=== PATIENT | female | born 1985 | race Caucasian/White ===

== ENCOUNTER 2016-03-16 00:03 | Inpatient (IN) ==
--- NOTE | 2016-03-16 00:06 | Emergency Department Note ---
Disposition Clinical Impression: Lymphocele after surgical procedure, Abdominal pain, lower Disposition: Admitted As Inpatient Condition: Good Referrals: NO,PCP [Primary Care Provider] - Forms: Work/School Release, ED Satisfaction Letter Abdominal Pain HPI - General Chief Complaint: ED Abdominal Pain Stated Complaint: Abdominal Pain Time Seen by Provider: 03/16/16 00:04 Mode of arrival: ambulatory Limitations: no limitations Nursing Notes Reviewed: Yes Vital Signs Reviewed: Yes - History of Present Illness HPI Narrative: Patient here for continued abdominal pain or lower abdomen she states she pulled out the drain on accident 2 days ago. She continues to have some pain and erythema in the anterior abdominal wall she has not been able to follow-up as an outpatient. She is complaining of pain and nausea and also states she had a fever today Pt Subjective Complaint: abdominal pain Onset (ago): week(s) (1) Consistency: constant, Worsening Location: LLQ, RLQ Pain Severity: moderate Quality: aching Radiation: none Improves with: nothing Worsens with: nothing Associated symptoms: Reports: fever. Denies: vomiting, dysuria, hematemesis Treatments prior to arrival: none - Related Data Home Medications Medication Instructions Recorded Confirmed Doxepin [Sinequan] 25 mg PO HS 11/21/15 03/10/16 FLUoxetine HCl [Prozac] 60 mg PO DAILY 11/21/15 03/10/16 Melatonin 5 mg PO HS PRN 01/26/16 03/10/16 Metoprolol XL (24 HR) Succ [Toprol 75 mg PO DAILY 01/26/16 03/10/16 Xl] Medroxyprogesterone Acetate 150 mg IM Q3M 02/03/16 03/10/16 [Depo-Provera] Gabapentin [Neurontin] 600 mg PO TID 02/23/16 03/10/16 Metoclopramide [Reglan] 10 mg PO Q6HR PRN 03/10/16 03/10/16 OxyCODONE/APAP 5/325 [Percocet 1 each PO Q6HR PRN 03/10/16 03/10/16 5/325 MG] Previous Rx's Medication Instructions Recorded Cephalexin [Keflex] 500 mg PO QID #40 capsule 01/30/16 Oxycodone HCl/Acetaminophen 1 - 2 each PO Q4-6H #20 tablet 03/10/16 [Percocet 5-325 mg Tablet] Allergies Allergy/AdvReac Type Severity Reaction Status Date / Time ketorolac [From Toradol] Allergy Rash Verified 03/16/16 00:21 All systems ED: reviewed and negative except as stated. Constitutional: Reports: fever Cardiovascular: Denies: chest pain, palpitations, dyspnea on exertion Abdominal Pain PMH - Past Medical History Medical history: Reports: hypertension Female Surgical History: Reports: Adenoidectomy, , cholecystectomy, herniorrhaphy, Tonsillectomy, other [place] history: Reports: endometriosis Psychiatric history: Reports: bipolar, depression, PTSD - Social History Smoking status: Current every day smoker Alcohol use: Reports: none Drug use: Reports: none Course Vital Signs Temperature 100.3 F H 03/16/16 00:04 Pulse Rate 82 03/16/16 00:04 Respiratory Rate 18 03/16/16 00:04 Blood Pressure 142/76 03/16/16 00:04 O2 Sat by Pulse Oximetry 96 03/16/16 00:04 Temperature 100.3 F H 03/16/16 00:04 Pulse Rate 85 03/16/16 01:51 Respiratory Rate 18 03/16/16 01:51 Blood Pressure 107/55 03/16/16 01:51 O2 Sat by Pulse Oximetry 95 03/16/16 01:51 Oxygen Delivery Oxygen Delivery Room Air Abdominal Pain - MDM Narrative Medical decision making narrative: I spoke with Dr. Greenwood he would like to have her medical hospitalist service intention is to open up the wound and place a wound VAC - Differential Diagnosis Differential Diagnosis: Likely: abdominal pain non-specific, abdominal pain mimics ectopic , constipation, colonic obstruction, diverticulitis, diverticulosis, endometriosis, gastroenteritis, ischemic bowel, pancreatitis - Medical Records Medical records reviewed: Yes I reviewed the patient's medical records. - Lab Data Lab results reviewed: Yes I reviewed the patient's lab results. Result diagrams: 03/16/16 00:33 03/16/16 00:33 Lab Results 03/16/16 03/16/16 03/16/16 Range/Units 00:33 00:33 00:33 WBC 6.6 (4.3-11.1) K/mcL RBC 4.11 (3.82-4.97) M/mcL Hgb 12.0 (11.5-15.4) g/dL Hct 37.6 (35.3-44.9) % MCV 91.5 (83.0-100.0) fL MCH 29.2 (28.0-33.3) pg MCHC 31.9 (31.6-35.5) g/dL RDW 14.5 (11.5-14.5) % Plt Count 347 (140-400) K/mcL MPV 8.7 L (9.4-12.4) fL Immature Gran % 0.3 (0-4) % Seg Neutrophils % 48.1 % Lymphocytes % 40.7 % Monocytes % 8.3 % Eosinophils % 2.0 % Basophils % 0.6 % Neutrophils # 3.2 (1.6-8.9) K/mcL Lymphocytes # 2.7 (0.6-4.6) K/mcL Monocytes # 0.6 (0.0-1.3) K/mcL Eosinophils # 0.1 (0.0-0.6) K/mcL Basophils # 0.0 (0.0-0.2) K/mcL Immature Plt Fraction 2.0 (1.1-6.1) % Sodium 141 (136-145) mEq/L Potassium 3.6 (3.5-4.5) mEq/L Chloride 109 (98-109) mEq/L Carbon Dioxide 21 (19-29) mEq/L BUN 8 (7-20) mg/dL Creatinine 0.63 (0.57-1.11) mg/dL Est GFR ( Amer) > 60 (> 60) Est GFR (Non-Af Amer) > 60 (> 60) BUN/Creatinine Ratio 13 (6-26) Glucose 86 (70-99) mg/dL Calculated Osmolality 290 (280-300) Lactic Acid 1.2 (0.5-2.2) mmol/L Calcium 8.9 (8.6-10.8) mg/dL Total Bilirubin 0.3 (0.2-1.2) mg/dL Direct Bilirubin 0.1 (0.0-0.5) mg/dL Indirect Bilirubin 0.2 (0.0-1.2) mg/dL AST 18 (5-34) Units/L ALT 17 (0-55) Units/L Alkaline Phosphatase 73 (38-126) Units/L Serum Total Protein 6.4 (6.0-8.3) g/dL Albumin 3.0 L (3.5-5.0) g/dL Globulin 3.4 (2.4-3.5) g/dL Albumin/Globulin Ratio 0.9 L (1.1-2.2) Amylase 28 (25-125) Units/L Lipase 17 (8-78) Units/L Urine Color (Yellow) Urine Clarity (Clear) Urine pH (5.0-8.0) pH Units Ur Specific [place] (1.010-1.025) Urine Protein (Neg-Trace) mg/dL Urine Glucose (UA) (Normal) mg/dL Urine Ketones (Negative) mg/dL Urine Blood (Negative) Urine Nitrite (Negative) Urine Bilirubin (Negative) Urine Urobilinogen (Normal) mg/dL Ur Leukocyte Esterase (Negative) Urine Microscopic RBC (0-3) per hpf Urine Microscopic WBC (0-3) per hpf Ur Squamous Epith Cells (None-Few) per lpf Urine Bacteria (None-Few) per hpf Hyaline Casts (None-Few) per lpf Ur Culture Indicated? (NO) Urine Opiates Screen (Flbvth=144) ng/mL Ur Barbiturates Screen (Gfmjit=870) ng/mL Ur Phencyclidine Scrn (Cutoff=25) ng/mL Ur Amphetamines Screen (Tagink=3494) ng/mL U Benzodiazepines Scrn (Iebjhs=320) ng/mL Urine Cocaine Screen (Cutoff= 300) ng/mL U Marijuana (THC) Screen (Cutoff = 50) ng/mL 03/16/16 03/16/16 Range/Units 00:46 00:49 WBC (4.3-11.1) K/mcL RBC (3.82-4.97) M/mcL Hgb (11.5-15.4) g/dL Hct (35.3-44.9) % MCV (83.0-100.0) fL MCH (28.0-33.3) pg MCHC (31.6-35.5) g/dL RDW (11.5-14.5) % Plt Count (140-400) K/mcL MPV (9.4-12.4) fL Immature Gran % (0-4) % Seg Neutrophils % % Lymphocytes % % Monocytes % % Eosinophils % % Basophils % % Neutrophils # (1.6-8.9) K/mcL Lymphocytes # (0.6-4.6) K/mcL Monocytes # (0.0-1.3) K/mcL Eosinophils # (0.0-0.6) K/mcL Basophils # (0.0-0.2) K/mcL Immature Plt Fraction (1.1-6.1) % Sodium (136-145) mEq/L Potassium (3.5-4.5) mEq/L Chloride (98-109) mEq/L Carbon Dioxide (19-29) mEq/L BUN (7-20) mg/dL Creatinine (0.57-1.11) mg/dL Est GFR ( Amer) (> 60) Est GFR (Non-Af Amer) (> 60) BUN/Creatinine Ratio (6-26) Glucose (70-99) mg/dL Calculated Osmolality (280-300) Lactic Acid (0.5-2.2) mmol/L Calcium (8.6-10.8) mg/dL Total Bilirubin (0.2-1.2) mg/dL Direct Bilirubin (0.0-0.5) mg/dL Indirect Bilirubin (0.0-1.2) mg/dL AST (5-34) Units/L ALT (0-55) Units/L Alkaline Phosphatase (38-126) Units/L Serum Total Protein (6.0-8.3) g/dL Albumin (3.5-5.0) g/dL Globulin (2.4-3.5) g/dL Albumin/Globulin Ratio (1.1-2.2) Amylase (25-125) Units/L Lipase (8-78) Units/L Urine Color Yellow (Yellow) Urine Clarity Cloudy A (Clear) Urine pH 7.0 (5.0-8.0) pH Units Ur Specific [place] 1.021 (1.010-1.025) Urine Protein Negative (Neg-Trace) mg/dL Urine Glucose (UA) Normal (Normal) mg/dL Urine Ketones Negative (Negative) mg/dL Urine Blood Negative (Negative) Urine Nitrite Negative (Negative) Urine Bilirubin Negative (Negative) Urine Urobilinogen Normal (Normal) mg/dL Ur Leukocyte Esterase Small H (Negative) Urine Microscopic RBC 0-3 (0-3) per hpf Urine Microscopic WBC 0-3 (0-3) per hpf Ur Squamous Epith Cells Many H (None-Few) per lpf Urine Bacteria Few (None-Few) per hpf Hyaline Casts None Seen (None-Few) per lpf Ur Culture Indicated? YES A (NO) Urine Opiates Screen Negative (Wceevg=775) ng/mL Ur Barbiturates Screen Negative (Jfxopm=827) ng/mL Ur Phencyclidine Scrn Negative (Cutoff=25) ng/mL Ur Amphetamines Screen Negative (Pqiucg=9948) ng/mL U Benzodiazepines Scrn Negative (Rchbug=661) ng/mL Urine Cocaine Screen Positive H (Cutoff= 300) ng/mL U Marijuana (THC) Screen Positive H (Cutoff = 50) ng/mL - Radiology Data Radiology results reviewed: Yes I reviewed the patient's radiology results.
[2016-03-16 00:54] LABS: Bilirubin,Urine Negative (Negative); Blood,Urine Negative (Negative); Clarity,Urine Cloudy (Clear); Color,Urine Yellow (Yellow); Glucose,Urine (UA) Normal (Normal); Ketones,Urine Negative (Negative); Leukocyte Esterase,Urine Small (Negative); Nitrite,Urine Negative (Negative); Protein,Urine Negative (Neg-Trace); Specific Gravity,Urine 1.021 (1.010-1.025); Urobilinogen,Urine Normal (Normal)
[2016-03-16 00:57] LABS: Bacteria,Urine Few per hpf (None-Few); Hyaline Casts,Urine None Seen per lpf (None-Few); RBC,Urine 0-3 per hpf (0-3); Squamous Epithelial Cell,Urine Many per lpf (None-Few); WBC,Urine 0-3 per hpf (0-3)
[2016-03-16 01:01] LABS: Amphetamine Screen,Urine Negative ng/mL (Cutoff=1000); Barbiturate Screen,Urine Negative ng/mL (Cutoff=200); Benzodiazepines Screen,Urine Negative ng/mL (Cutoff=200); Cannabinoid Screen,Urine Positive ng/mL (Cutoff = 50); Cocaine Screen,Urine Positive ng/mL (Cutoff= 300); Opiate Screen,Urine Negative ng/mL (Cutoff=300); Phencyclidine Screen,Urine Negative ng/mL (Cutoff=25)
[2016-03-16 01:08] LABS: Basophils % 0.6 %; Eosinophils # 0.1 K/mcL (0.0-0.6); Hematocrit 37.6 % (35.3-44.9); Immature Granulocytes % 0.3 % (0-4); Lymphocytes # 2.7 K/mcL (0.6-4.6); Lymphocytes % 40.7 %; Mean Corpuscular HGB Conc 31.9 g/dL (31.6-35.5); Mean Corpuscular Hemoglobin 29.2 pg (28.0-33.3); Mean Corpuscular Volume 91.5 fL (83.0-100.0); Mean Platelet Volume 8.7 fL (9.4-12.4); Monocytes # 0.6 K/mcL (0.0-1.3); Monocytes % 8.3 %; Neutrophils # 3.2 K/mcL (1.6-8.9); Platelet Count 347 K/mcL (140-400); Red Blood Count 4.11 M/mcL (3.82-4.97); Red Cell Distribution Width 14.5 % (11.5-14.5); Segmented Neutrophils % 48.1 %
[2016-03-16 01:24] LABS: Alanine Aminotransferase 17 Units/L (0-55); Albumin/Globulin Ratio 0.9 (1.1-2.2); Alkaline Phosphatase 73 Units/L (38-126); Amylase 28 Units/L (25-125); Aspartate Amino Transferase 18 Units/L (5-34); BUN/Creatinine Ratio 13 (6-26); Bilirubin,Direct 0.1 mg/dL (0.0-0.5); Bilirubin,Indirect 0.2 mg/dL (0.0-1.2); Bilirubin,Total 0.3 mg/dL (0.2-1.2); Blood Urea Nitrogen 8 mg/dL (7-20); Calcium 8.9 mg/dL (8.6-10.8); Carbon Dioxide 21 mEq/L (19-29); Chloride 109 mEq/L (98-109); Globulin 3.4 g/dL (2.4-3.5); Glucose 86 mg/dL (70-99); Lipase 17 Units/L (8-78); Osmolality,Calculated 290 (280-300); Potassium 3.6 mEq/L (3.5-4.5); Sodium 141 mEq/L (136-145); Total Protein 6.4 g/dL (6.0-8.3); eGFR For African Americans > 60 (> 60); eGFR For Non-African Americans > 60 (> 60)
[2016-03-16] MEDS ORDERED: *HR* Promethazine 25 MG/ML VIAL IVP ONE ×2 (01:32→11:45)
[2016-03-16] MEDS ORDERED: Acetaminophen 325 MG TABLET PO PRN (04:50)
[2016-03-16] MEDS ORDERED: Naloxone 0.4 MG/ML INJ IVP PRN (04:50)
--- NOTE | 2016-03-16 05:01 | Internal Med History&Physical ---
Date of Encounter: 03/16/16 Time of Encounter: 04:35 Internal Medicine - H&P: HPI Chief complaint: Abdominal pain, drainage from non-healing wound, fever. Admitted From: Emergency Dept Plans for Post Hospital Care: Home History of present illness: Ms. Mosher is a 30 year old female with recurrent panniculitis, pannicular drainage, s/p panniculectomy on January 26 2016. She reports abdominal pain, pannicular drainage and low grade fevers. She had a drain placed by IR last week and was sent home on Keflex. The drainage tube fell out yesterday while she was sleeping. Urine drug screen is positive for cocaine and marijuana. She agrees to socially snorting coacaine. . She is FULL CODE as per discussion, she nominates her mother, Karen Flores as her NOK/POA. Medical history: Reports: hypertension Female Surgical History: Reports: Adenoidectomy, , cholecystectomy, herniorrhaphy, Tonsillectomy, panniculectomy COMMUNICATIONS SYSTEMS ENGINEER history: Reports: endometriosis Psychiatric history: Reports: bipolar, depression, PTSD Smoking status: Current every day smoker Alcohol use: Reports: none Drug use: Reports: Cocaine (last use 2 days Family history: mother: Grave disease, father: DM, CAD s/p CABG, CVA, sister: HTN. ROS: See HPI, a 10-point ROS was performed, positives and relevant negatives are detailed, system-symptoms not mentioned is assumed negative unless other triplett stated. Vital Signs Temperature 100.3 F H 03/16/16 00:04 Pulse Rate 82 03/16/16 00:04 Respiratory Rate 18 03/16/16 00:04 Blood Pressure 142/76 03/16/16 00:04 O2 Sat by Pulse Oximetry 96 03/16/16 00:04 Temperature 100.3 F H 03/16/16 00:04 Pulse Rate 85 03/16/16 01:51 Respiratory Rate 18 03/16/16 01:51 Blood Pressure 107/55 03/16/16 01:51 O2 Sat by Pulse Oximetry 95 03/16/16 01:51 O/E: Morbidly obese, not in distress HEENT: Not pale, anicteric, afebrile, acyanotic, no JVD Chest: CTAB Heart/CVS: RRR, HS1/2, no murmur Abdomen: hip incision, largely healed excepts for pannicula in the left half, purulent discharge, suggesting underlying sinus and pocket of fluid. soft, tender, no masses. Site of disloged SIM drain has closed. excess abdominal wall skin WATER TAXI CAPTAIN: AAO x 3, no gross focal neurological decifits Skin: Pannicula, see above Extremities: no normal pedal pulses, no calf tenderness. Lab Results 03/16/16 03/16/16 03/16/16 Range/Units 00:33 00:33 00:33 WBC 6.6 (4.3-11.1) K/mcL RBC 4.11 (3.82-4.97) M/mcL Hgb 12.0 (11.5-15.4) g/dL Hct 37.6 (35.3-44.9) % MCV 91.5 (83.0-100.0) fL MCH 29.2 (28.0-33.3) pg MCHC 31.9 (31.6-35.5) g/dL RDW 14.5 (11.5-14.5) % Plt Count 347 (140-400) K/mcL MPV 8.7 L (9.4-12.4) fL Immature Gran % 0.3 (0-4) % Seg Neutrophils % 48.1 % Lymphocytes % 40.7 % Monocytes % 8.3 % Eosinophils % 2.0 % Basophils % 0.6 % Neutrophils # 3.2 (1.6-8.9) K/mcL Lymphocytes # 2.7 (0.6-4.6) K/mcL Monocytes # 0.6 (0.0-1.3) K/mcL Eosinophils # 0.1 (0.0-0.6) K/mcL Basophils # 0.0 (0.0-0.2) K/mcL Immature Plt Fraction 2.0 (1.1-6.1) % Sodium 141 (136-145) mEq/L Potassium 3.6 (3.5-4.5) mEq/L Chloride 109 (98-109) mEq/L Carbon Dioxide 21 (19-29) mEq/L BUN 8 (7-20) mg/dL Creatinine 0.63 (0.57-1.11) mg/dL Est GFR ( Amer) > 60 (> 60) Est GFR (Non-Af Amer) > 60 (> 60) BUN/Creatinine Ratio 13 (6-26) Glucose 86 (70-99) mg/dL Calculated Osmolality 290 (280-300) Lactic Acid 1.2 (0.5-2.2) mmol/L Calcium 8.9 (8.6-10.8) mg/dL Total Bilirubin 0.3 (0.2-1.2) mg/dL Direct Bilirubin 0.1 (0.0-0.5) mg/dL Indirect Bilirubin 0.2 (0.0-1.2) mg/dL AST 18 (5-34) Units/L ALT 17 (0-55) Units/L Alkaline Phosphatase 73 (38-126) Units/L Serum Total Protein 6.4 (6.0-8.3) g/dL Albumin 3.0 L (3.5-5.0) g/dL Globulin 3.4 (2.4-3.5) g/dL Albumin/Globulin Ratio 0.9 L (1.1-2.2) Amylase 28 (25-125) Units/L Lipase 17 (8-78) Units/L Urine Color (Yellow) Urine Clarity (Clear) Urine pH (5.0-8.0) pH Units Ur Specific [place] (1.010-1.025) Urine Protein (Neg-Trace) mg/dL Urine Glucose (UA) (Normal) mg/dL Urine Ketones (Negative) mg/dL Urine Blood (Negative) Urine Nitrite (Negative) Urine Bilirubin (Negative) Urine Urobilinogen (Normal) mg/dL Ur Leukocyte Esterase (Negative) Urine Microscopic RBC (0-3) per hpf Urine Microscopic WBC (0-3) per hpf Ur Squamous Epith Cells (None-Few) per lpf Urine Bacteria (None-Few) per hpf Hyaline Casts (None-Few) per lpf Ur Culture Indicated? (NO) Urine Opiates Screen (Nggkeq=462) ng/mL Ur Barbiturates Screen (Jrntsw=255) ng/mL Ur Phencyclidine Scrn (Cutoff=25) ng/mL Ur Amphetamines Screen (Jowevt=5854) ng/mL U Benzodiazepines Scrn (Zeawdh=431) ng/mL Urine Cocaine Screen (Cutoff= 300) ng/mL U Marijuana (THC) Screen (Cutoff = 50) ng/mL 01/27/17 01/27/17 Range/Units 00:46 00:49 WBC (4.3-11.1) K/mcL RBC (3.82-4.97) M/mcL Hgb (11.5-15.4) g/dL Hct (35.3-44.9) % MCV (83.0-100.0) fL MCH (28.0-33.3) pg MCHC (31.6-35.5) g/dL RDW (11.5-14.5) % Plt Count (140-400) K/mcL MPV (9.4-12.4) fL Immature Gran % (0-4) % Seg Neutrophils % % Lymphocytes % % Monocytes % % Eosinophils % % Basophils % % Neutrophils # (1.6-8.9) K/mcL Lymphocytes # (0.6-4.6) K/mcL Monocytes # (0.0-1.3) K/mcL Eosinophils # (0.0-0.6) K/mcL Basophils # (0.0-0.2) K/mcL Immature Plt Fraction (1.1-6.1) % Sodium (136-145) mEq/L Potassium (3.5-4.5) mEq/L Chloride (98-109) mEq/L Carbon Dioxide (19-29) mEq/L BUN (7-20) mg/dL Creatinine (0.57-1.11) mg/dL Est GFR ( Amer) (> 60) Est GFR (Non-Af Amer) (> 60) BUN/Creatinine Ratio (6-26) Glucose (70-99) mg/dL Calculated Osmolality (280-300) Lactic Acid (0.5-2.2) mmol/L Calcium (8.6-10.8) mg/dL Total Bilirubin (0.2-1.2) mg/dL Direct Bilirubin (0.0-0.5) mg/dL Indirect Bilirubin (0.0-1.2) mg/dL AST (5-34) Units/L ALT (0-55) Units/L Alkaline Phosphatase (38-126) Units/L Serum Total Protein (6.0-8.3) g/dL Albumin (3.5-5.0) g/dL Globulin (2.4-3.5) g/dL Albumin/Globulin Ratio (1.1-2.2) Amylase (25-125) Units/L Lipase (8-78) Units/L Urine Color Yellow (Yellow) Urine Clarity Cloudy A (Clear) Urine pH 7.0 (5.0-8.0) pH Units Ur Specific [place] 1.021 (1.010-1.025) Urine Protein Negative (Neg-Trace) mg/dL Urine Glucose (UA) Normal (Normal) mg/dL Urine Ketones Negative (Negative) mg/dL Urine Blood Negative (Negative) Urine Nitrite Negative (Negative) Urine Bilirubin Negative (Negative) Urine Urobilinogen Normal (Normal) mg/dL Ur Leukocyte Esterase Small H (Negative) Urine Microscopic RBC 0-3 (0-3) per hpf Urine Microscopic WBC 0-3 (0-3) per hpf Ur Squamous Epith Cells Many H (None-Few) per lpf Urine Bacteria Few (None-Few) per hpf Hyaline Casts None Seen (None-Few) per lpf Ur Culture Indicated? YES A (NO) Urine Opiates Screen Negative (Inyaol=113) ng/mL Ur Barbiturates Screen Negative (Vwsvfq=411) ng/mL Ur Phencyclidine Scrn Negative (Cutoff=25) ng/mL Ur Amphetamines Screen Negative (Ystxkl=1646) ng/mL U Benzodiazepines Scrn Negative (Ljexsn=148) ng/mL Urine Cocaine Screen Positive H (Cutoff= 300) ng/mL U Marijuana (THC) Screen Positive H (Cutoff = 50) ng/mL imp Panniculitis with fever, with drainage ? 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 urine and blood cultures have been sent. DR GREENWOOD WILL OBTAIN RE[RESENTATION MICROBIOLOGY SAMPLE DURING SURGERY Continue medications of chronic morbidities DVT prophylaxis with TEDs, may convert to heparin subcut q8-12h on POD2 I discussed my findings and assessment with the patient, she verbalized understanding and is agreeable to admission. Await surgical recommendation. Past Med Surg Social Fam HX - Past Medical History Medical history: hypertension Psychiatric history: bipolar, depression, PTSD - Past Surgical History Surgical History: , herniorrhaphy - Social History Smoking Status: Current every day smoker Smokeless Tobacco Status: No Alcohol use: none Drug use: cocaine - Family History Father Adopted: No Family Member Ethnicity: Non- Living Status: Still Living Hx Family Cardiac Disorders: Yes Hx Family Respiratory Disorders: No Hx Family Cancer: Yes Hx Family GI Disorders: No Hx Family Endocrine Disorder: Yes Hx Family Neuromuscular Disorders: No Hx Family Neurologic Disorders: No Hx Family HEENT Disorders: No Hx Family Autoimmune Disorders: No Internal Medicine - H&P: Meds Doxepin [Sinequan] 25 mg PO HS 11/21/15 [History] FLUoxetine HCl [Prozac] 60 mg PO DAILY 11/21/15 [History] Melatonin 5 mg PO HS PRN 01/26/16 [History] Metoprolol XL (24 HR) Succ [Toprol Xl] 75 mg PO DAILY 01/26/16 [History] Gabapentin [Neurontin] 600 mg PO TID 02/23/16 [History] OxyCODONE/APAP 5/325 [Percocet 5/325 MG] 1 - 2 tab PO Q6HR PRN 03/10/16 [History ] Allergies ketorolac [From Toradol] Allergy (Verified 03/16/16 09:25) Rash All Systems PM: A 10-system review of systems was performed and is negative for pertinent findings except as documented above in the HPI. - Constitutional Vitals: Temp Pulse Resp BP Pulse Ox 99.2 F 73 16 111/70 95 03/16/16 04:48 03/16/16 04:48 03/16/16 04:48 03/16/16 04:48 03/16/16 04:48 Internal Med - H&P Results - Labs CBC & Chem 7: 03/17/16 06:19 03/17/16 06:36
[2016-03-16] MEDS: *HR* OxyCODONE/APAP 5/325 TABLET PO PRN ×3 (05:12→19:45)
--- NOTE | 2016-03-16 06:45 | General Surgery Consult Note ---
Date of Encounter: 03/16/16 Time of Encounter: 06:30 Assessment and Plan (1) Lymphocele after surgical procedure Current Visit: Yes Status: Acute The patient has a postoperative lymphocele. She has been noncompliant with recommended therapy. She has been noncompliant with recommended clinic follow- up. She now presents for treatment of the lymphocele with negative pressure wound dressing and wound debridement. History of Present Illness Consult date: 03/16/16 History of present illness: The patient is originally a wound clinic patient. She had a wound on her midline for 2 years that failed to heal. Because of this she underwent panniculectomy. During the postoperative period she developed a lymphocele. A negative pressure wound dressing was recommended. The patient failed to comply with this recommendation. She underwent placement of CAT scan drain which failed to resolve the lymphocele. The CAT scan drain came out and she now presents with recurrent lymphocele. There are several ongoing problems that are interfering with patient care. First, she only contacts the physician's offices between midnight and 2 AM on the emergency telephone contact number. She fails to keep her clinic appointments in both wound care and the surgical office area she has been in and out of rehabilitation for narcotic use and currently is drug screen positive for multiple agents. As always I am enthusiastic about providing her care but not in this inconsistent and suboptimal environment. I had a long talk with the patient this morning. She is willing to keep her clinic appointments and resolve the issue with negative pressure wound dressing. We will keep her nothing by mouth and I will debride the wound today and placed negative pressure wound dressing. Past Med Surg Social Fam HX - Past Medical History Medical history: hypertension Psychiatric history: bipolar, depression, PTSD - Past Surgical History Surgical History: , herniorrhaphy - Social History Smoking Status: Current every day smoker Smokeless Tobacco Status: No Alcohol use: none Drug use: cocaine - Family History Father Adopted: No Family Member Ethnicity: Non- Living Status: Still Living Hx Family Cardiac Disorders: Yes Hx Family Respiratory Disorders: No Hx Family Cancer: Yes Hx Family GI Disorders: No Hx Family Endocrine Disorder: Yes Hx Family Neuromuscular Disorders: No Hx Family Neurologic Disorders: No Hx Family HEENT Disorders: No Hx Family Autoimmune Disorders: No Medications and Allergies Doxepin [Sinequan] 25 mg PO HS 11/21/15 [History] FLUoxetine HCl [Prozac] 60 mg PO DAILY 11/21/15 [History] Melatonin 5 mg PO HS PRN 01/26/16 [History] Metoprolol XL (24 HR) Succ [Toprol Xl] 75 mg PO DAILY 01/26/16 [History] Cephalexin [Keflex] 500 mg PO QID #40 capsule 01/30/16 [Rx] Medroxyprogesterone Acetate [Depo-Provera] 150 mg IM Q3M 02/03/16 [History] Gabapentin [Neurontin] 600 mg PO TID 02/23/16 [History] Metoclopramide [Reglan] 10 mg PO Q6HR PRN 03/10/16 [History] OxyCODONE/APAP 5/325 [Percocet 5/325 MG] 1 each PO Q6HR PRN 03/10/16 [History] Oxycodone HCl/Acetaminophen [Percocet 5-325 mg Tablet] 1 - 2 each PO Q4-6H #20 tablet 03/10/16 [Rx] Allergies ketorolac [From Toradol] Allergy (Verified 03/16/16 00:21) Rash Review of Systems All systems PM: reviewed and no additional remarkable complaints except as stated All systems PM: A 10-system review of systems was performed and is negative for pertinent findings except as documented above in the HPI. General Surgery Exam Initial Vital Signs Temp Pulse Resp BP Pulse Ox 100.3 F H 82 18 142/76 96 03/16/16 00:04 03/16/16 00:04 03/16/16 00:04 03/16/16 00:04 03/16/16 00:04 - General physical appearance well developed, well nourished, no distress - Neck no masses, no bruits, trachea midline, no lymphadectomy, no venous distension - Respiratory normal expansion, normal respiratory effort, clear to percussion, clear to auscultation - Cardiovascular Cardiovascular exam: Present: RRR, 15, 16 - Abdomen Abdomen general surgery: Present: bowel sounds present, soft, non tender - Incision Incision: Present: approximated (There is no drainage however I can feel a lymphocele under the wound) - Neurologic Present: CN 2-12 grossly intact, normal coordination, normal sensation - Psychiatric Psychiatric general surgery: Present: appropriate, oriented to person, oriented to place, oriented to time, speech is normal, memory intact Exam Initial Vital Signs Temp Pulse Resp BP Pulse Ox 100.3 F H 82 18 142/76 96 03/16/16 00:04 03/16/16 00:04 03/16/16 00:04 03/16/16 00:04 03/16/16 00:04 Results - Labs 03/16/16 00:33 03/16/16 00:33 Abnormal lab results MPV 8.7 fL (9.4-12.4) L 03/16/16 00:33 Albumin 3.0 g/dL (3.5-5.0) L 03/16/16 00:33 Albumin/Globulin Ratio 0.9 (1.1-2.2) L 03/16/16 00:33 Urine Clarity Cloudy (Clear) A 03/16/16 00:49 Ur Leukocyte Esterase Small (Negative) H 03/16/16 00:49 Ur Squamous Epith Cells Many per lpf (None-Few) H 03/16/16 00:49 Ur Culture Indicated? YES (NO) A 03/16/16 00:49 Urine Cocaine Screen Positive ng/mL (Cutoff= 300) H 03/16/16 00:46 U Marijuana (THC) Screen Positive ng/mL (Cutoff = 50) H 03/16/16 00:46 All other labs normal. - Imaging CT scan - abdomen: image reviewed (I personally reviewed the CAT scan and the abdomen I disagree with the finding. I believe that this is lymphocele and not abscess. She will be treated with negative pressure wound dressing later today after the wound was debrided.) Consult Discharge Plan - Plan Referrals: NO,PCP [Primary Care Provider] -
[2016-03-16] MEDS: Ondansetron 4 MG/2 ML VIAL IVP PRN (10:29)
[2016-03-16] MEDS: *HR* Morphine 2 MG/ML SYRINGE IVP PRN ×3 (10:30→23:30)
--- NOTE | 2016-03-16 10:35 | Internal Med Progress Note ---
Date of Encounter: 03/16/16 Time of Encounter: 10:33 - Assessment and plan (1) Abdominal pain, lower Current Visit: Yes Status: Acute Assessment and plan: Patient presented with abdominal pain, she has been evaluated by surgical team, patient will go to the operating room today, she would undergo a debridement and we have a negative pressure wound dressing placed. Possible lymphocele. We will follow-up after surgical procedure. In the meantime we will continue with pain control. Patient has tested positive for both cocaine and marijuana. She is also an active smoker, she was strongly advised in regards to smoking cessation and avoidance of the use of recreational drugs. (2) Lymphocele after surgical procedure Current Visit: Yes Status: Acute (3) DVT prophylaxis Current Visit: No Status: Acute (4) Tobacco abuse Current Visit: No Status: Chronic - Time Spent With Patient 25 - 35 minutes - Subjective Interval history: This is my first encounter with the patient. The patient is complaining of abdominal pain, denies fever, denies shortness of breath. The patient is a chronic active smoker, she declined nicotine replacement therapy. - Constitutional Vitals: Temp Pulse Resp BP Pulse Ox 98.8 F 61 18 106/57 97 03/16/16 10:13 03/16/16 10:13 03/16/16 10:13 03/16/16 10:13 03/16/16 10:13 General appearance: Present: cooperative, A&O X 3, morbidly obese Exam: Multiple tattoos. - Head Head exam: Present: atraumatic, normocephalic - Eye Eye exam: Present: PERRL, conjuntiva pink, sclera anicteric Pupils: Present: PERRL - Neck Neck exam general surgery: Present: supple, trachea midline. Absent: lymphadenopathy - Respiratory Respiratory exam: Present: CTAB. Absent: accessory muscle use, rales, rhonchi, wheezes - Cardiovascular Cardiovascular exam: Present: RRR, +S1, +S2. Absent: diastolic murmur, gallop, rubs, systolic murmur - GI/Abdominal GI/Abdominal exam: Present: normal bowel sounds, soft, no peritoneal signs. Absent: distended, tenderness - Extremities Exam Extremities exam: Present: warm, radial pulses palpable and symetrical. Absent : calf tenderness, cyanotic, pedal edema - Neurological Exam Neurological exam: Present: CN II-XII intact, oriented X3, no focal deficits. Absent: pronater drift, facial droop, speech deficit - Skin Skin exam: Present: dry, intact Internal Medicine: Result - Labs CBC & Chem 7: 03/16/16 00:33 03/16/16 00:33 Consult Discharge Plan - Plan Referrals: NO,PCP [Primary Care Provider] -
--- NOTE | 2016-03-16 10:49 | Physician Discharge Referral ---
Home Health/Hosp Referral Info Transfer to: Home Health Provider in Charge Post Discharge: PCP (and Dr. Alexys Greenwood for wound care) - Diagnosis (1) Lymphocele after surgical procedure Priority: Primary Status: Acute - Respiratory Orders None Smoking Cessation: Smoking cessation has been advised. For more information, call the [place] Tobacco Quit Line at 1-998-UCYP-NOW. - Dressing/Wound Care Site: Lower abdomen Type of Dressing/Treatments w/Frequency: Wound vac- change every M-W-F Will need white foam to tunnelled areas at 3 o'clock and 9 o'clock and medium black foam to non-tunnelled areas. Place vac at 125mmHG continuous suction. - Diet/Nutrition Diet/Nutrition Orders: Regular - Activity Activity Orders: Up ad errol - Services Needed Following services are medically necessary services: Nursing - Transfer Medications Home Medications: Doxepin [Sinequan] 25 mg PO HS 11/21/15 [History] FLUoxetine HCl [Prozac] 60 mg PO DAILY 11/21/15 [History] Melatonin 5 mg PO HS PRN 01/26/16 [History] Metoprolol XL (24 HR) Succ [Toprol Xl] 75 mg PO DAILY 01/26/16 [History] Gabapentin [Neurontin] 600 mg PO TID 02/23/16 [History] OxyCODONE/APAP 5/325 [Percocet 5/325 MG] 1 - 2 tab PO Q6HR PRN 03/10/16 [History ] Allergies/Adverse Reactions: Allergies ketorolac [From Toradol] Allergy (Verified 03/16/16 09:25) Rash Certification: Further, I certify that my clinical findings support that this patient is homebound (i.e. absences from home require considerable and taxing effort and are for medical reasons or adventism services or infrequently or short duration when for other reasons) because: Homebound Reason: Patient requires assistance of a person or device to safely leave home, Post-surgery restriction and or conditions limit ability to leave home, Leaving home requires considerable and taxing effort due to condition Attestation: My signature below is to certify that this patient is under my care and that I, or nurse practitioner, or a physician's project administrative assistant working with me, has a face-to -face encounter with this patient.
[2016-03-16] MEDS: Nicotine 14 MG PATCH.TD24 TD SCH (19:14)
[2016-03-17] MEDS: *HR* Morphine 2 MG/ML SYRINGE IVP PRN ×5 (04:00→23:42)
[2016-03-17] MEDS: Ondansetron 4 MG/2 ML VIAL IVP PRN (06:22)
[2016-03-17 06:28] LABS: Basophils % 0.7 %; Eosinophils # 0.1 K/mcL (0.0-0.6); Eosinophils % 2.4 %; Hematocrit 31.5 % (35.3-44.9); Immature Granulocytes % 0.2 % (0-4); Lymphocytes % 44.5 %; Mean Corpuscular HGB Conc 31.1 g/dL (31.6-35.5); Mean Corpuscular Hemoglobin 29.4 pg (28.0-33.3); Mean Corpuscular Volume 94.6 fL (83.0-100.0); Mean Platelet Volume 9.4 fL (9.4-12.4); Monocytes # 0.4 K/mcL (0.0-1.3); Monocytes % 7.6 %; Platelet Count 181 K/mcL (140-400); Red Blood Count 3.33 M/mcL (3.82-4.97); Red Cell Distribution Width 14.5 % (11.5-14.5); Segmented Neutrophils % 44.6 %
[2016-03-17 06:34] LABS: Lymphocytes # 2.1 K/mcL (0.6-4.6); Neutrophils # 2.1 K/mcL (1.6-8.9)
[2016-03-17 06:35] LABS: Hemoglobin 9.8 g/dL (11.5-15.4)
[2016-03-17 06:54] LABS: BUN/Creatinine Ratio 14 (6-26); Blood Urea Nitrogen 9 mg/dL (7-20); Calcium 8.5 mg/dL (8.6-10.8); Carbon Dioxide 21 mEq/L (19-29); Chloride 111 mEq/L (98-109); Glucose 102 mg/dL (70-99); Osmolality,Calculated 291 (280-300); Potassium 4.1 mEq/L (3.5-4.5); Sodium 141 mEq/L (136-145); eGFR For African Americans > 60 (> 60); eGFR For Non-African Americans > 60 (> 60)
[2016-03-17] MEDS: Nicotine 14 MG PATCH.TD24 TD SCH (08:01)
[2016-03-17] MEDS ORDERED: Albuterol 2.5 MG/3 ML NEBULIZER ONE (09:17)
--- NOTE | 2016-03-17 09:20 | Anesthesia Evaluation PreOp ---
Date of Encounter: 03/17/16 Time of Encounter: 09:18 - Past History Planned Operation: abdominal wound debridement/wound vacc Cardiac History: HTN Pulmonary History: Denies Any Significant HX RETAIL MARKETING SPECIALIST History: Other (bipolar, depression, ptsd) Anesthesia History: No Prior Anesthetic Complications, Past Anesthesia (c/s, herniorrhpahy, panniculectomy) Alcohol Use: none Drug use: cocaine (denies any in the past 24 hrs (states one week ago)) Medications and Allergies Doxepin [Sinequan] 25 mg PO HS 11/21/15 [History] FLUoxetine HCl [Prozac] 60 mg PO DAILY 11/21/15 [History] Melatonin 5 mg PO HS PRN 01/26/16 [History] Metoprolol XL (24 HR) Succ [Toprol Xl] 75 mg PO DAILY 01/26/16 [History] Gabapentin [Neurontin] 600 mg PO TID 02/23/16 [History] OxyCODONE/APAP 5/325 [Percocet 5/325 MG] 1 - 2 tab PO Q6HR PRN 03/10/16 [History ] Allergies ketorolac [From Toradol] Allergy (Verified 03/16/16 09:25) Rash - Meds/Allergy Pre-op Review Medications Reviewed: Yes Allergies Reviewed: Yes Beta Blockers on Current Med List: No Anesthesia Results - Labs 03/17/16 06:19 03/17/16 06:36 - Imaging EKG: report reviewed () Anesthesia Exam O2 Sat Weight 132 kg O2 Sat by Pulse Oximetry 96 O2 Sat by Pulse Oximetry 95 O2 Sat by Pulse Oximetry 95 O2 Sat by Pulse Oximetry 92 O2 Sat by Pulse Oximetry 99 O2 Sat by Pulse Oximetry 97 Vital Signs Temp Pulse Resp BP Pulse Ox 100.3 F H 82 18 142/76 96 03/16/16 00:04 03/16/16 00:04 03/16/16 00:04 03/16/16 00:04 03/16/16 00:04 Height: 1.7 Weight: 132 NPO (# of Hours): >8 - HEENT Mallampati: II Teeth: Poor dentition Oral Opening: Greater than 3 - RETAIL MARKETING SPECIALIST LOC: Oriented RETAIL MARKETING SPECIALIST Motor: Normal RUE, Normal LUE, Normal RLE, Normal LLE, Normal Face RETAIL MARKETING SPECIALIST Sensory: Normal: RUE, LUE, RLE, LLE, Face - Cardiac Rhythm: Regular Murmur: None - Pulmonary Breath Sounds: bilateral Clear Respiratory Effort: Symmetrical Anesthesia Assess/Plan ASA Score: 3 Modified Ирина Scale for Level of Consciousness: Cooperative, oriented, and tranquil Anesthetic Plan: General Monitoring Plan: Standard Monitors Recovery Plan: PACU
[2016-03-17] MEDS ORDERED: Albuterol 2.5 MG/3 ML NEBULIZER IH ONE (09:21)
[2016-03-17] MEDS ORDERED: *HR* FentaNYL (PF) 100 MCG/2 ML VIAL ONE (09:26)
[2016-03-17] MEDS ORDERED: *HR* Propofol 200 MG/20 ML VIAL IVP ONE (09:27)
[2016-03-17] MEDS ORDERED: Lidocaine -MPF 2% 2 ML VIAL ONE (09:28)
[2016-03-17] MEDS ORDERED: *HR* Rocuronium Bromide 50 MG/5 ML VIAL ONE (09:28)
[2016-03-17] MEDS ORDERED: Dexamethasone 4 MG/ML VIAL ONE (09:28)
[2016-03-17] MEDS ORDERED: Ondansetron 4 MG/2 ML VIAL ONE (09:28)
[2016-03-17] MEDS ORDERED: *HR* Promethazine 25 MG/ML VIAL IVP PRN ×2 (09:33→11:28)
[2016-03-17] MEDS ORDERED: Ringers Solution, Lactated 1,000 ML IVC SCH (09:45)
[2016-03-17] MEDS ORDERED: Ketamine *HR* 500 MG/10 ML MDV ONE (09:53)
[2016-03-17] MEDS ORDERED: Neostigmine Methylsulfate 3 MG/3 ML SYRINGE ONE (10:21)
[2016-03-17] MEDS: *HR* HYDROmorphone (PF) 1 MG/ML SYRINGE IVP PRN ×2 (10:52→10:57)
--- NOTE | 2016-03-17 11:14 | Operative Note ---
Date of procedure: 03/17/16 Pre-op diagnosis: Wound lymphocele Post-op diagnosis: same Procedure: Incision and debridement of lower adominal wound with wound vac placement Anesthesia: KYLIEA Surgeon: Renata Hooker Estimated blood loss (cc): 5 Specimen: aerobic/anaerobic lymphocele cultures Disposition: PACU Procedure in Detail: wound vac measurements: wound at skin level: 12 cm W x 5 cm L x 7 cm D, entire wound measurements including undermining 28 cm w x 12 cm L x 7 cm D Patient was brought into operating suite and placed supine on the operating table. Sign in was done and everyone was in agreement. Anesthesia was induced and patient endotracheally intubated by anesthesia without incident. The abdomen was prepped and draped in the usual sterile fashion. Time-out was done and everyone was in agreement. An incision through the previous panniculectomy scar was done with a 15# blade in the left lower quadrant. We dissected through the subcutaneous fat with the bovie. The lymphocele fluid collection was entered superiorly. Fluid aerobic and anaerobic cultures were obtained. The fluid was suction from the wound. Currettes were used to debride the wound. The wound was irrigated with sterile saline. The wound was packed with 3 (cut) pieces of white foam and two pieces of cut black foam. The plastic drape was applied and a black foam bridge to left abdomen was applied. The suction was applied and the vac set to 125 mmHg continuous suction. The patient tolerated the procedure well and all lap and instrument counts were correct at the end of the case. She was extubated in the OR and taken to pacu in stable condition.
[2016-03-17] MEDS ORDERED: Acetaminophen 325 MG TABLET PO PRN (11:28)
[2016-03-17] MEDS ORDERED: Naloxone 0.4 MG/ML INJ IVP PRN (11:28)
[2016-03-17] MEDS ORDERED: Ondansetron 4 MG/2 ML VIAL IVP PRN (11:28)
--- NOTE | 2016-03-17 11:36 | Anesthesia Evaluation Post Op ---
Date of Encounter: 03/17/16 Time of Encounter: 11:35 - Vital Signs Vital Signs: Vital Signs/O2 Sat/Glucose, Most Current Temp Pulse Resp BP Pulse Ox 03/17/16 11:30 97.8 F 68 16 131/71 96 03/17/16 11:20 97.4 F L 68 20 105/58 99 03/17/16 11:10 64 20 118/48 99 03/17/16 11:00 69 20 114/59 98 03/17/16 10:50 98.1 F 80 18 125/67 96 - Lungs Lungs: Clear Ascult./Percussion - Airway Airway: Non-obstructed - Cardiovascular Regular Rate - Mental Status Mental Status: Alert & Oriented, Answers Appropriately - Pain Pain Scale: 2 - Nausea Vomiting Nausea Vomiting: Not Present - Hydration Hydration: Ice chips - Discharge PostOp Status: Transfer Patient to floor
[2016-03-17] MEDS: *HR* OxyCODONE/APAP 10/325 TABLET PO PRN ×2 (11:38→19:33)
[2016-03-17] MEDS: *HR* Promethazine 25 MG/ML VIAL IVP PRN ×2 (11:55→17:54)
[2016-03-17] MEDS: Gabapentin 300 MG CAPSULE PO SCH ×2 (15:22→19:46)
--- NOTE | 2016-03-17 16:22 | Internal Med Progress Note ---
Date of Encounter: 03/17/16 Time of Encounter: 10:00 - Assessment and plan (1) Abdominal pain, lower Current Visit: Yes Status: Acute Assessment and plan: Patient presented with abdominal pain, she has been evaluated by surgical team, patient went to the operating room today, she underwent a debridement and had negative pressure wound dressing placed. Patient has tested positive for both cocaine and marijuana. She is also an active smoker, she was strongly advised in regards to smoking cessation and avoidance of the use of recreational drugs. (2) Lymphocele after surgical procedure Current Visit: Yes Status: Acute (3) DVT prophylaxis Current Visit: No Status: Acute (4) Tobacco abuse Current Visit: No Status: Chronic - Time Spent With Patient 25 - 35 minutes - Subjective Interval history: The patient is complaining of abdominal pain, denies fever, denies shortness of breath. The patient is a chronic active smoker, she declined nicotine replacement therapy. Underwent debridement in the OR, wound VAC was placed. - Constitutional Vitals: Temp Pulse Resp BP Pulse Ox 98.7 F 75 16 118/58 93 L 03/17/16 13:30 03/17/16 13:30 03/17/16 13:30 03/17/16 13:30 03/17/16 13:30 General appearance: Present: cooperative, A&O X 3, morbidly obese Exam: Wound VAC placed - Head Head exam: Present: atraumatic, normocephalic - Eye Eye exam: Present: PERRL, conjuntiva pink, sclera anicteric Pupils: Present: PERRL - Neck Neck exam general surgery: Present: supple, trachea midline. Absent: lymphadenopathy - Respiratory Respiratory exam: Present: CTAB. Absent: accessory muscle use, rales, rhonchi, wheezes - Cardiovascular Cardiovascular exam: Present: RRR, +S1, +S2. Absent: diastolic murmur, gallop, rubs, systolic murmur - GI/Abdominal GI/Abdominal exam: Present: normal bowel sounds, soft, no peritoneal signs. Absent: distended, tenderness - Extremities Exam Extremities exam: Present: warm, radial pulses palpable and symetrical. Absent : calf tenderness, cyanotic, pedal edema - Neurological Exam Neurological exam: Present: CN II-XII intact, oriented X3, no focal deficits. Absent: pronater drift, facial droop, speech deficit - Skin Skin exam: Present: dry, intact Internal Medicine: Result - Labs CBC & Chem 7: 03/17/16 06:19 03/17/16 06:36 Labs: Short CBC 03/17/16 Range/Units 06:19 WBC 4.6 (4.3-11.1) K/mcL Hgb 9.8 L D (11.5-15.4) g/dL Hct 31.5 L (35.3-44.9) % Plt Count 181 (140-400) K/mcL Neutrophils # 2.1 (1.6-8.9) K/mcL BMP 03/17/16 06:36 Sodium 141 Potassium 4.1 Chloride 111 H Carbon Dioxide 21 BUN 9 Creatinine 0.63 Glucose 102 H Calcium 8.5 L - VTE Documentation of Mechanical Device: Graduated compression elastic hosiery Consult Discharge Plan - Plan Referrals: NO,PCP [Primary Care Provider] -
[2016-03-17] MEDS: Melatonin 3 MG TABLET PO PRN (19:46)
[2016-03-18] MEDS: *HR* OxyCODONE/APAP 10/325 TABLET PO PRN ×3 (01:36→14:47)
[2016-03-18] MEDS: *HR* Promethazine 25 MG/ML VIAL IVP PRN ×2 (04:36→20:17)
[2016-03-18] MEDS: *HR* Morphine 2 MG/ML SYRINGE IVP PRN ×2 (04:42→09:44)
[2016-03-18 04:44] LABS: Basophils % 0.2 %; Eosinophils % 0.2 %; Hematocrit 35.5 % (35.3-44.9); Hemoglobin 11.2 g/dL (11.5-15.4); Immature Granulocytes % 0.8 % (0-4); Lymphocytes # 1.5 K/mcL (0.6-4.6); Lymphocytes % 11.8 %; Mean Corpuscular HGB Conc 31.5 g/dL (31.6-35.5); Mean Corpuscular Hemoglobin 28.6 pg (28.0-33.3); Mean Corpuscular Volume 90.8 fL (83.0-100.0); Mean Platelet Volume 9.5 fL (9.4-12.4); Monocytes % 7.9 %; Neutrophils # 10.3 K/mcL (1.6-8.9); Platelet Count 284 K/mcL (140-400); Red Blood Count 3.91 M/mcL (3.82-4.97); Red Cell Distribution Width 14.3 % (11.5-14.5); Segmented Neutrophils % 79.1 %
[2016-03-18 04:55] LABS: BUN/Creatinine Ratio 13 (6-26); Blood Urea Nitrogen 8 mg/dL (7-20); Calcium 8.9 mg/dL (8.6-10.8); Carbon Dioxide 20 mEq/L (19-29); Chloride 111 mEq/L (98-109); Glucose 127 mg/dL (70-99); Osmolality,Calculated 290 (280-300); Potassium 4.9 mEq/L (3.5-4.5); Sodium 140 mEq/L (136-145); eGFR For African Americans > 60 (> 60); eGFR For Non-African Americans > 60 (> 60)
[2016-03-18] MEDS: Gabapentin 300 MG CAPSULE PO SCH ×3 (07:04→20:17)
[2016-03-18] MEDS: Nicotine 14 MG PATCH.TD24 TD SCH (07:05)
[2016-03-18] MEDS: Metoprolol XL (24 HR) Succ 25 MG TAB.ER.24H PO SCH (07:05)
[2016-03-18] MEDS: FLUoxetine 20 MG CAPSULE PO SCH (07:05)
[2016-03-18] MEDS: *HR* HYDROmorphone (PF) 1 MG/ML SYRINGE IVP PRN ×3 (13:02→20:18)
--- NOTE | 2016-03-18 15:53 | General Surgery Progress Note ---
<Jose Ramon Lorenz - Last Filed: 03/18/16 15:50> Date of Encounter: 03/18/16 Time of Encounter: 10:55 - Assessment and Plan (1) Lymphocele after surgical procedure Current Visit: Yes Status: Acute s/p Incision and debridement of lower abdominal wound with wound vac placement yesterday by Dr. Hooker. Plan for Patient to undergo wound vac change while inpatient, likely tomorrow, to ensure she can tolerate home health to do this at discharge. Wound vac to lower abdomen- change M,W,F Dr. Greenwood will return tomorrow. Supportive care/pain control- changed from morphine to dilaudid, as she states the morphine made her nauseous. (2) DVT prophylaxis Current Visit: No Status: Acute QUENTIN hoshector for DVT prophylaxis. (3) Tobacco abuse Current Visit: No Status: Chronic Subjective Patient reports: no new complaints, feels better, still having pain, voiding w/ o difficulty, flatus, no bowel movement, afebrile Objective Vital Signs - Last 8 Hours Temp Pulse Resp BP Pulse Ox 03/18/16 14:40 98.9 F 77 16 132/84 98 03/18/16 10:28 98.2 F 82 18 130/75 96 Intake and Output 03/17/16 03/18/16 03/18/16 23:59 07:59 15:59 Intake Total 240 / 240 360 / 360 Output Total 400 / 400 1450 / 1450 300 / 300 Balance -160 / -160 -1450 / -1450 60 / 60 Intake: Oral 240 / 240 360 / 360 Output: Urine 400 / 400 1450 / 1450 300 / 300 Other: Meal Dinner Lunch Percent of Meal Consumed 100% 50% # Bowel Movements 0 0 Weight 134.127 kg Patient Weight 03/18/16 23:59 Weight 134.127 kg - General physical appearance well developed, well nourished, no distress, obese - Eyes normal ocular movement - ENT normal mucosa, atraumatic, normocephalic - Neck Neck exam: trachea midline - Respiratory normal respiratory effort, clear to auscultation - Cardiovascular Cardiovascular exam: Present: RRR - Abdomen Abdomen: Present: bowel sounds present, soft, tender (mild tenderness at hypogastric/suprapubic region), wound (Wound vac to lower abdomen (50ml of serosanginous drainage noted in past 24 hours).) - Integumentary no rash, no growths, other (improving erythema of lower abdomen.) - Neurologic CN 2-12 grossly intact - Psychiatric oriented to time, oriented to person, oriented to place, speech is normal, memory intact - Labs 03/18/16 04:33 03/18/16 04:33 Diabetes panel 03/18/16 Range/Units 04:33 Sodium 140 (136-145) mEq/L Potassium 4.9 H (3.5-4.5) mEq/L Chloride 111 H (98-109) mEq/L Carbon Dioxide 20 (19-29) mEq/L BUN 8 (7-20) mg/dL Creatinine 0.61 (0.57-1.11) mg/dL Glucose 127 H (70-99) mg/dL Calcium 8.9 (8.6-10.8) mg/dL Calcium panel 03/18/16 Range/Units 04:33 Calcium 8.9 (8.6-10.8) mg/dL Pituitary panel 03/18/16 Range/Units 04:33 Sodium 140 (136-145) mEq/L Potassium 4.9 H (3.5-4.5) mEq/L Chloride 111 H (98-109) mEq/L Carbon Dioxide 20 (19-29) mEq/L BUN 8 (7-20) mg/dL Creatinine 0.61 (0.57-1.11) mg/dL Glucose 127 H (70-99) mg/dL Calcium 8.9 (8.6-10.8) mg/dL Adrenal panel 03/18/16 Range/Units 04:33 Sodium 140 (136-145) mEq/L Potassium 4.9 H (3.5-4.5) mEq/L Chloride 111 H (98-109) mEq/L Carbon Dioxide 20 (19-29) mEq/L BUN 8 (7-20) mg/dL Creatinine 0.61 (0.57-1.11) mg/dL Glucose 127 H (70-99) mg/dL Calcium 8.9 (8.6-10.8) mg/dL - VTE Documentation of Mechanical Device: Graduated compression elastic hosiery Consult Discharge Plan - Plan Referrals: NO,PCP [Primary Care Provider] - <Renata Hooker - Last Filed: 03/18/16 17:36> - Assessment and Plan (1) Lymphocele after surgical procedure Current Visit: Yes Status: Acute would like pt to have first vac change in hospital to see if she tolerates prn pain meds (2) Abdominal pain Current Visit: No Status: Acute continue percocet and dilaudid prn for break through pain Qualifiers: Abdominal location: lower abdomen, unspecified Qualified Code(s): R10.30 - Lower abdominal pain, unspecified Subjective Patient reports: no new complaints, feels better, still having pain, pain is less, flatus, no bowel movement Objective Intake and Output 03/18/16 03/18/16 03/18/16 07:59 15:59 23:59 Output Total 210 / 210 Balance -210 210 Output: Wound Drainage Abdomen - General physical appearance well developed, well nourished, no distress, obese - Eyes PERRL, normal ocular movement - ENT normal mucosa, normocephalic - Neck Neck exam: trachea midline - Respiratory normal respiratory effort, clear to auscultation - Cardiovascular Cardiovascular exam: Present: RRR - Abdomen Abdomen: Present: bowel sounds present, soft, tender - Integumentary no rash, no growths, other - Neurologic CN 2-12 grossly intact - Psychiatric oriented to time, oriented to person, oriented to place, speech is normal, memory intact - Labs 03/18/16 04:33 03/18/16 04:33 Short CBC 03/18/16 Range/Units 04:33 WBC 13.0 H D (4.3-11.1) K/mcL Hgb 11.2 L (11.5-15.4) g/dL Hct 35.5 (35.3-44.9) % Plt Count 284 D (140-400) K/mcL Neutrophils # 10.3 H (1.6-8.9) K/mcL BMP 03/18/16 Range/Units 04:33 Sodium 140 (136-145) mEq/L Potassium 4.9 H (3.5-4.5) mEq/L Chloride 111 H (98-109) mEq/L Carbon Dioxide 20 (19-29) mEq/L BUN 8 (7-20) mg/dL Creatinine 0.61 (0.57-1.11) mg/dL Glucose 127 H (70-99) mg/dL Calcium 8.9 (8.6-10.8) mg/dL Vital Signs Temp Pulse Resp BP Pulse Ox 03/18/16 14:40 98.9 F 77 16 132/84 98 03/18/16 10:28 98.2 F 82 18 130/75 96 03/18/16 07:34 98.5 F 62 18 143/80 95 03/18/16 03:26 98.5 F 55 14 98/53 93 L 03/18/16 00:28 98.8 F 55 16 113/59 93 L 03/17/16 20:33 99.4 F 62 16 117/65 94 L Intake and Output 03/18/16 03/18/16 03/18/16 07:59 15:59 23:59 Intake Total 360 / 360 Output Total 1450 / 1450 300 / 300 210 / 210 Balance -1450 / -1450 60 / 60 -210 / -210 Intake: Oral 360 / 360 Output: Urine 1450 / 1450 300 / 300 Wound Drainage 210 / 210 Abdomen 210 / 210 Other: Meal Lunch Percent of Meal Consumed 50% # Bowel Movements 0 0 Weight 134.127 kg Patient Weight 03/18/16 23:59 Weight 134.127 kg
--- NOTE | 2016-03-18 15:59 | Internal Med Progress Note ---
Date of Encounter: 03/18/16 Time of Encounter: 15:58 - Assessment and plan (1) Abdominal pain, lower Current Visit: Yes Status: Acute Assessment and plan: Patient presented with abdominal pain, she has been evaluated by surgical team, patient went to the operating room today, yesterday she underwent a debridement and had negative pressure wound dressing placed. Patient has tested positive for both cocaine and marijuana. She is also an active smoker, she was strongly advised in regards to smoking cessation and avoidance of the use of recreational drugs. Follow surgical team recommendations. (2) Lymphocele after surgical procedure Current Visit: Yes Status: Acute (3) DVT prophylaxis Current Visit: No Status: Acute (4) Tobacco abuse Current Visit: No Status: Chronic - Time Spent With Patient 25 - 35 minutes - Subjective Interval history: The patient is complaining of abdominal pain, denies fever, denies shortness of breath. The patient is a chronic active smoker, she declined nicotine replacement therapy. Underwent debridement in the OR yesterday, wound VAC was placed. - Constitutional Vitals: Temp Pulse Resp BP Pulse Ox 98.9 F 77 16 132/84 98 03/18/16 14:40 03/18/16 14:40 03/18/16 14:40 03/18/16 14:40 03/18/16 14:40 General appearance: Present: cooperative, A&O X 3, morbidly obese - Head Head exam: Present: atraumatic, normocephalic - Eye Eye exam: Present: PERRL, conjuntiva pink, sclera anicteric Pupils: Present: PERRL - Neck Neck exam general surgery: Present: supple, trachea midline. Absent: lymphadenopathy - Respiratory Respiratory exam: Present: CTAB. Absent: accessory muscle use, rales, rhonchi, wheezes - Cardiovascular Cardiovascular exam: Present: RRR, +S1, +S2. Absent: diastolic murmur, gallop, rubs, systolic murmur - GI/Abdominal GI/Abdominal exam: Present: normal bowel sounds, soft, no peritoneal signs. Absent: distended, tenderness - Extremities Exam Extremities exam: Present: warm, radial pulses palpable and symetrical. Absent : calf tenderness, cyanotic, pedal edema - Neurological Exam Neurological exam: Present: CN II-XII intact, oriented X3, no focal deficits. Absent: pronater drift, facial droop, speech deficit - Skin Skin exam: Present: dry, intact Internal Medicine: Result - Labs CBC & Chem 7: 03/18/16 04:33 03/18/16 04:33 Labs: Short CBC 03/18/16 Range/Units 04:33 WBC 13.0 H D (4.3-11.1) K/mcL Hgb 11.2 L (11.5-15.4) g/dL Hct 35.5 (35.3-44.9) % Plt Count 284 D (140-400) K/mcL Neutrophils # 10.3 H (1.6-8.9) K/mcL BMP 03/18/16 04:33 Sodium 140 Potassium 4.9 H Chloride 111 H Carbon Dioxide 20 BUN 8 Creatinine 0.61 Glucose 127 H Calcium 8.9 - VTE Documentation of Mechanical Device: Graduated compression elastic hosiery Consult Discharge Plan - Plan Referrals: NO,PCP [Primary Care Provider] -
[2016-03-18] MEDS: Melatonin 3 MG TABLET PO PRN (20:17)
[2016-03-19] MEDS: *HR* OxyCODONE/APAP 10/325 TABLET PO PRN ×3 (00:07→13:23)
[2016-03-19] MEDS: *HR* HYDROmorphone (PF) 1 MG/ML SYRINGE IVP PRN ×2 (01:42→13:54)
[2016-03-19 04:36] LABS: Basophils # 0.1 K/mcL (0.0-0.2); Basophils % 0.5 %; Eosinophils # 0.2 K/mcL (0.0-0.6); Eosinophils % 1.4 %; Hematocrit 33.5 % (35.3-44.9); Hemoglobin 10.8 g/dL (11.5-15.4); Immature Granulocytes % 0.4 % (0-4); Lymphocytes # 2.9 K/mcL (0.6-4.6); Lymphocytes % 26.3 %; Mean Corpuscular HGB Conc 32.2 g/dL (31.6-35.5); Mean Corpuscular Volume 90.1 fL (83.0-100.0); Mean Platelet Volume 10.1 fL (9.4-12.4); Monocytes # 1.4 K/mcL (0.0-1.3); Monocytes % 12.2 %; Neutrophils # 6.6 K/mcL (1.6-8.9); Platelet Count 194 K/mcL (140-400); Red Blood Count 3.72 M/mcL (3.82-4.97); Red Cell Distribution Width 14.7 % (11.5-14.5); Segmented Neutrophils % 59.2 %
[2016-03-19 04:51] LABS: BUN/Creatinine Ratio 17 (6-26); Blood Urea Nitrogen 10 mg/dL (7-20); Calcium 8.6 mg/dL (8.6-10.8); Carbon Dioxide 19 mEq/L (19-29); Chloride 110 mEq/L (98-109); Glucose 95 mg/dL (70-99); Osmolality,Calculated 291 (280-300); Potassium 4.4 mEq/L (3.5-4.5); Sodium 141 mEq/L (136-145); eGFR For African Americans > 60 (> 60); eGFR For Non-African Americans > 60 (> 60)
[2016-03-19 05:05] LABS: Platelet Estimate Normal (Normal)
[2016-03-19] MEDS: Metoprolol XL (24 HR) Succ 25 MG TAB.ER.24H PO SCH (07:55)
[2016-03-19] MEDS: Gabapentin 300 MG CAPSULE PO SCH (07:55)
[2016-03-19] MEDS: FLUoxetine 20 MG CAPSULE PO SCH (07:55)
[2016-03-19] MEDS: Nicotine 14 MG PATCH.TD24 TD SCH (07:56)
[2016-03-19 10:28] VITALS: BP 121/70
--- NOTE | 2016-03-19 14:05 | Discharge Summary ---
<Jarett Hamilton - Last Filed: 03/19/16 14:00> Date of Encounter: 03/19/16 Time of Encounter: 14:01 - Discharge Diagnosis (1) Lymphocele after surgical procedure Priority: Primary Status: Acute (2) Marijuana abuse Priority: Secondary Status: Acute (3) Cocaine abuse Priority: Secondary Status: Acute (4) Morbid obesity with BMI of 45.0-49.9, adult Priority: Secondary Status: Acute (5) DVT prophylaxis Priority: Secondary Status: Acute - Discharge Medications Prescriptions: OxyCODONE/APAP 5/325 [Percocet 5/325 MG] 1 - 2 tab PO Q6HR PRN #40 tablet PRN Reason: Pain Home Medications: Doxepin [Sinequan] 25 mg PO HS 11/21/15 [History] FLUoxetine HCl [Prozac] 60 mg PO DAILY 11/21/15 [History] Melatonin 5 mg PO HS PRN 01/26/16 [History] Metoprolol XL (24 HR) Succ [Toprol Xl] 75 mg PO DAILY 01/26/16 [History] Gabapentin [Neurontin] 600 mg PO TID 02/23/16 [History] OxyCODONE/APAP 5/325 [Percocet 5/325 MG] 1 - 2 tab PO Q6HR PRN #40 tablet [Rx] Allergies/Adverse Reactions: Allergies ketorolac [From Toradol] Allergy (Verified 03/16/16 09:25) Rash Date of admission: 03/18/16 17:06 Primary care physician: PCP NO Consults: Surgery Discharging clinician: Jarett Hamilton Anticipated date of discharge: 03/19/16 - Patient Status Disposition: Home Health Service Condition: Good Overall status at discharge: patient is progressing back to baseline - Discharge Instructions Follow Up With: Natalee Cary TEMPLATE INSPECTOR [Advanced Practice Nurse] - 03/21/16 10:00 am (surgery follow-up; wound vac change) NO,PCP [Primary Care Provider] - (F/u with anyone of resident in residency clinic, she does not have PCP, for hospital d/c /f/u.) Additional Instructions: May shower, no tub bath Wound vac with white foam to tunnelling at 3 o'clock and 9 o'clock. Black foam to non-tunnelled areas of the wound. Place to 125mmHG continuous suction. Change every M-W- per home health care. First change to occur in the outpatient surgical office 03-21-16. - Diet and Activity Activity: resume usual activities as tolerated Diet: low fat, low cholesterol Hospital course: Ms. Mosher is a 30 year old female with hx of abd surgery, had a wound on her midline for two yrs which failed to heal, underwent panniculectomy in the past, after this surgery she developed a lymphocele, came to the ER with cc of abd pain and pannicular drainage, admitted for same reason, surgery was consulted, CT abd showed worsened subcutaneous abcess therefore she was taken to the surgery for I & D and low abd wound vac placement, initial change will be done today and therefore it will be change three times a week, M//, home health will be set up for her. All cultures came back normal, no abx was necessary unpon d.c. Jigar abd pain, nausea/emesis, feve or chill on d/c day. - Time Spent with Patient Total time spent providing and/or coordinating discharge services: - Constitutional Vitals: Temp Pulse Resp BP Pulse Ox 99.4 F 92 16 121/70 97 03/19/16 10:04 03/19/16 10:04 03/19/16 10:04 03/19/16 10:04 03/19/16 10:04 General appearance: Present: cooperative, A&O X 3, morbidly obese, pleasant, no acute distress, answers questions appropriately - Head Head exam: Present: atraumatic, normocephalic - Eye Eye exam: Present: PERRL, conjuntiva pink, sclera anicteric Pupils: Present: PERRL - Neck Neck exam general surgery: Present: supple, trachea midline. Absent: lymphadenopathy - Respiratory Respiratory exam: Present: CTAB. Absent: accessory muscle use, rales, rhonchi, wheezes - Cardiovascular Cardiovascular exam: Present: RRR, +S1, +S2. Absent: diastolic murmur, gallop, rubs, systolic murmur - GI/Abdominal GI/Abdominal exam: Present: normal bowel sounds, soft, no peritoneal signs. Absent: distended, tenderness Additional comments: Wound VAC in place - Extremities Exam Extremities exam: Present: warm, radial pulses palpable and symetrical. Absent : calf tenderness, cyanotic, pedal edema - Neurological Exam Neurological exam: Present: CN II-XII intact, oriented X3, no focal deficits. Absent: pronater drift, facial droop, speech deficit - Skin Skin exam: Present: dry, intact - VTE Documentation of Mechanical Device: Graduated compression elastic hosiery <ShirleyYou mensah Judith - Last Filed: 03/19/16 16:50> - Discharge Diagnosis (1) Abdominal pain, lower Status: Acute (2) Lymphocele after surgical procedure Status: Acute (3) DVT prophylaxis Status: Acute (4) Tobacco abuse Status: Chronic Date of admission: 03/18/16 17:06 Primary care physician: PCP NO Hospital course: Ms. Mosher is a 30 year old female - Time Spent with Patient Total time spent providing and/or coordinating discharge services: - Constitutional Vitals: Temp Pulse Resp BP Pulse Ox 99.4 F 92 16 121/70 97 03/19/16 10:04 03/19/16 10:04 03/19/16 10:04 03/19/16 10:04 03/19/16 10:04 - Attending Attestation I agree with the physical examination findings, assessment and plan documented by the resident Dr. Jarett Hamilton. I examined the patient independently. Surgically triplett stable,continue with wound VAC, follow up with wound care services. Discharge home today.
--- NOTE | 2016-03-19 14:15 | General Surgery Progress Note ---
<NottowayNatalee Dieudonne - Last Filed: 03/19/16 14:20> Date of Encounter: 03/19/16 Time of Encounter: 14:00 - Assessment and Plan (1) Lymphocele after surgical procedure Status: Acute POD #2 from wound debridement and wound vac placement Wound vac changed today- plan to continue wound vac changes every MWF Supportive care and pain control Subjective Patient reports: feels better, still having pain (right sided), pain is less, tolerating a regular diet, voiding w/o difficulty, flatus, afebrile (Tmax 99.7) Objective Vital Signs - Last 8 Hours Temp Pulse Resp BP Pulse Ox 03/19/16 10:04 99.4 F 92 16 121/70 97 03/19/16 07:15 99.7 F H 73 16 124/67 97 Intake and Output 03/18/16 03/19/16 03/19/16 23:59 07:59 15:59 Intake Total 120 / 120 720 / 720 600 / 600 Output Total 1110 / 1110 730 / 730 750 / 750 Balance -990 / -990 -10 / -10 -150 / -150 Intake: Oral 120 / 120 720 / 720 600 / 600 Output: Urine 800 / 800 700 / 700 750 / 750 Wound Drainage 310 / 310 30 / 30 Abdomen 210 / 210 30 / 30 Medial Abdomen 100 / 100 Other: Meal Dinner Lunch Percent of Meal Consumed 75% 100% # Bowel Movements 0 0 Weight 134.1 kg Patient Weight 03/19/16 23:59 Weight 134.1 kg - General physical appearance well developed, well nourished, no distress - Eyes normal ocular movement - ENT normal mucosa, atraumatic, normocephalic - Neck Neck exam: trachea midline - Respiratory normal expansion, normal respiratory effort, clear to auscultation - Cardiovascular Cardiovascular exam: Present: RRR - Abdomen Abdomen: Present: bowel sounds present, soft, non tender, wound (Wound vac intact with serous drainage noted) - Incision Incision: Present: open (Wound vac to Left groin with serous drainage noted, 90 % granulation tissue noted) - Neurologic CN 2-12 grossly intact - Musculoskeletal normal gait, normal posture - Psychiatric oriented to time, oriented to person, oriented to place, speech is normal, memory intact - Labs 03/19/16 04:20 03/19/16 04:20 Diabetes panel 03/19/16 Range/Units 04:20 Sodium 141 (136-145) mEq/L Potassium 4.4 (3.5-4.5) mEq/L Chloride 110 H (98-109) mEq/L Carbon Dioxide 19 (19-29) mEq/L BUN 10 (7-20) mg/dL Creatinine 0.58 (0.57-1.11) mg/dL Glucose 95 (70-99) mg/dL Calcium 8.6 (8.6-10.8) mg/dL Calcium panel 03/19/16 Range/Units 04:20 Calcium 8.6 (8.6-10.8) mg/dL Pituitary panel 03/19/16 Range/Units 04:20 Sodium 141 (136-145) mEq/L Potassium 4.4 (3.5-4.5) mEq/L Chloride 110 H (98-109) mEq/L Carbon Dioxide 19 (19-29) mEq/L BUN 10 (7-20) mg/dL Creatinine 0.58 (0.57-1.11) mg/dL Glucose 95 (70-99) mg/dL Calcium 8.6 (8.6-10.8) mg/dL Adrenal panel 03/19/16 Range/Units 04:20 Sodium 141 (136-145) mEq/L Potassium 4.4 (3.5-4.5) mEq/L Chloride 110 H (98-109) mEq/L Carbon Dioxide 19 (19-29) mEq/L BUN 10 (7-20) mg/dL Creatinine 0.58 (0.57-1.11) mg/dL Glucose 95 (70-99) mg/dL Calcium 8.6 (8.6-10.8) mg/dL - VTE Documentation of Mechanical Device: Graduated compression elastic hosiery Consult Discharge Plan - Plan Additional Instructions: May shower, no tub bath Wound vac with white foam to tunnelling at 3 o'clock and 9 o'clock. Black foam to non-tunnelled areas of the wound. Place to 125mmHG continuous suction. Change every -- per home health care. First change to occur in the outpatient surgical office 03-21-16. Referrals: Natalee Cary INTER COM SERVICER [Advanced Practice Nurse] - 03/21/16 10:00 am (surgery follow-up; wound vac change) NO,PCP [Primary Care Provider] - (F/u with anyone of resident in residency clinic, she does not have PCP, for hospital d/c /f/u.) Prescriptions: OxyCODONE/APAP 5/325 [Percocet 5/325 MG] 1 - 2 tab PO Q6HR PRN #40 tablet PRN Reason: Pain - Attending Attestation I examined this patient and my medical decision-making was reviewed with the JOB TRAINING SUPERVISOR/PA/Advanced Practice Nurse/Resident Physician. I agree with the documented findings, disposition and treatment plan as described except to the extent set forth below. <Alexys Greenwood - Last Filed: 03/22/16 06:51> - Assessment and Plan (1) Lymphocele after surgical procedure Status: Acute Objective - Labs 03/19/16 04:20 03/19/16 04:20 - Attending Attestation Alexys Greenwood MD FACS
== END 2016-03-19 16:23 | disposition home health service (06) | DRG 791 ==
LOC: 3ANU 00:03 → EMEROO 00:03 → 3ANU 04:14
PROVIDERS: ADMIT Internal Medicine; ATTEND Internal Medicine

== ENCOUNTER 2016-03-21 10:37 | Observation (INO) ==
[2016-03-21] MEDS ORDERED: 0.9 % Sodium Chloride 1,000 ML IVC ONE (13:18)
[2016-03-21] MEDS ORDERED: *HR* HYDROmorphone 2 MG/ML SYRINGE IV ONE ×3 (13:20→18:26)
[2016-03-21] MEDS ORDERED: Ondansetron 4 MG/2 ML VIAL IVP ONE (13:21)
[2016-03-21 14:08] LABS: Basophils # 0.1 K/mcL (0.0-0.2); Basophils % 0.5 %; Eosinophils # 0.3 K/mcL (0.0-0.6); Eosinophils % 2.9 %; Hematocrit 38.2 % (35.3-44.9); Immature Granulocytes % 0.3 % (0-4); Lymphocytes # 2.3 K/mcL (0.6-4.6); Lymphocytes % 24.4 %; Mean Corpuscular HGB Conc 32.5 g/dL (31.6-35.5); Mean Corpuscular Hemoglobin 29.3 pg (28.0-33.3); Mean Corpuscular Volume 90.3 fL (83.0-100.0); Mean Platelet Volume 9.6 fL (9.4-12.4); Monocytes # 0.9 K/mcL (0.0-1.3); Monocytes % 9.8 %; Neutrophils # 5.8 K/mcL (1.6-8.9); Platelet Count 342 K/mcL (140-400); Red Blood Count 4.23 M/mcL (3.82-4.97); Red Cell Distribution Width 14.3 % (11.5-14.5); Segmented Neutrophils % 62.1 %
[2016-03-21 14:19] LABS: Alanine Aminotransferase 16 Units/L (0-55); Albumin 3.1 g/dL (3.5-5.0); Albumin/Globulin Ratio 0.7 (1.1-2.2); Alkaline Phosphatase 76 Units/L (38-126); Aspartate Amino Transferase 16 Units/L (5-34); BUN/Creatinine Ratio 10 (6-26); Bilirubin,Direct 0.3 mg/dL (0.0-0.5); Bilirubin,Indirect 0.3 mg/dL (0.0-1.2); Bilirubin,Total 0.6 mg/dL (0.2-1.2); Blood Urea Nitrogen 6 mg/dL (7-20); Calcium 9.3 mg/dL (8.6-10.8); Carbon Dioxide 18 mEq/L (19-29); Chloride 107 mEq/L (98-109); Globulin 4.5 g/dL (2.4-3.5); Glucose 96 mg/dL (70-99); Magnesium 1.7 mg/dL (1.6-2.6); Osmolality,Calculated 281 (280-300); Phosphorous 2.7 mg/dL (2.3-4.7); Sodium 137 mEq/L (136-145); Total Protein 7.6 g/dL (6.0-8.3); eGFR For African Americans > 60 (> 60); eGFR For Non-African Americans > 60 (> 60)
[2016-03-21 14:22] LABS: Hemoglobin 12.4 g/dL (11.5-15.4)
[2016-03-21 15:20] LABS: Bilirubin,Urine Negative (Negative); Blood,Urine Negative (Negative); Clarity,Urine Cloudy (Clear); Color,Urine Yellow (Yellow); Glucose,Urine (UA) Normal (Normal); Ketones,Urine Negative (Negative); Leukocyte Esterase,Urine Trace (Negative); Nitrite,Urine Negative (Negative); Protein,Urine Negative (Neg-Trace); Specific Gravity,Urine 1.021 (1.010-1.025); Urobilinogen,Urine Normal (Normal)
[2016-03-21 15:24] LABS: Bacteria,Urine Moderate per hpf (None-Few); Hyaline Casts,Urine None Seen per lpf (None-Few); Squamous Epithelial Cell,Urine Many per lpf (None-Few)
--- NOTE | 2016-03-21 15:36 | Emergency Department Note ---
Disposition Clinical Impression: Encounter for management of vacuum-assisted closure (VAC) of wound, Post-op pain, Lymphocele after surgical procedure Abdominal pain Qualifiers: Abdominal location: lower abdomen, unspecified Qualified Code(s): R10.30 - Lower abdominal pain, unspecified UTI (urinary tract infection) Qualifiers: Urinary tract infection type: site unspecified Hematuria presence: with hematuria Qualified Code(s): N39.0 - Urinary tract infection, site not specified ; R31.9 - Hematuria, unspecified Disposition: Admitted As Inpatient Condition: Fair Referrals: Ayan Jackson DO [Primary Care Provider] - Forms: Work/School Release, ED Satisfaction Letter Time of Disposition: 19:41 Abdominal Pain HPI - General Chief Complaint: ED Abdominal Pain Stated Complaint: fever and bad pain Source: patient Nursing Notes Reviewed: Yes Vital Signs Reviewed: Yes - History of Present Illness HPI Narrative: Patient 30-year-old female with past medical history significant for wound VAC that was put and placed 5 days ago secondary to complication of abdominal surgery that was done back in January. Patient reports today with history of fever and Worsening abdominal pain 2 days. Patient saw her surgeon Dr. Cary today and was sent over to the ED for evaluation. Pain Scale: 9 - Related Data Home Medications Medication Instructions Recorded Confirmed Doxepin [Sinequan] 25 mg PO HS 11/21/15 03/16/16 FLUoxetine HCl [Prozac] 60 mg PO DAILY 11/21/15 03/16/16 Melatonin 5 mg PO HS PRN 01/26/16 03/16/16 Gabapentin [Neurontin] 600 mg PO TID 02/23/16 03/16/16 Previous Rx's Medication Instructions Recorded OxyCODONE/APAP 5/325 [Percocet 1 - 2 tab PO Q6HR PRN #40 tablet 03/19/16 5/325 MG] Allergies Allergy/AdvReac Type Severity Reaction Status Date / Time ketorolac [From Toradol] Allergy Rash Verified 03/16/16 09:25 Review of Systems: Patient admits to fever recorded at home 103 degrees Fahrenheit, Abdominal pain , nausea, vomiting, lightheadedness and fatigue. Patient denies diarrhea. Patient is passing gas, denies chest pain, shortness of breath, heart palpitations Abdominal Pain PMH - Past Medical History Medical history: Reports: hypertension Female Surgical History: Reports: , Tonsillectomy, other IT ASSISTANT history: Reports: endometriosis Psychiatric history: Reports: bipolar, depression, PTSD - Social History Smoking status: Current every day smoker Alcohol use: Reports: none Drug use: Reports: cocaine Physical Exam Vital Signs Temperature 99 F 03/21/16 10:48 Pulse Rate 81 03/21/16 10:48 Respiratory Rate 16 03/21/16 10:48 Blood Pressure 131/52 03/21/16 10:48 O2 Sat by Pulse Oximetry 97 03/21/16 10:48 Temperature 99.8 F H 03/21/16 14:35 Pulse Rate 89 03/21/16 14:35 Respiratory Rate 26 03/21/16 14:35 Blood Pressure 100/72 03/21/16 14:35 O2 Sat by Pulse Oximetry 96 03/21/16 14:35 Oxygen Delivery Oxygen Delivery Room Air -General Appearance: Patient is a 30-year-old female who is alert and oriented 3 and is in no acute distress patient appears very uncomfortable patient appears sick but not toxic. -Neurological exam: Cranial nerves II-12 intact, no focal deficits observed, strength equal 5/5 bilaterally in upper and lower extremities, cerebellar motion test negative. Negative loss of sensation - Head Head exam: atraumatic, normocephalic, normal inspection - Eye Eye exam: Present: normal appearance, PERRL, EOMI, negative for scleral icterus negative for conjunctival pallor - ENT ENT exam: normal exam, normal oropharynx, mucous membranes moist - Neck Neck exam: Present: normal inspection, full ROM, trachea midline, negative JVD - Chest Chest inspection: Present: Patient has bilateral equal rise and fall of chest wall. Non-tender to palpation. - Respiratory Respiratory exam: Clear to auscultation bilaterally without wheezes rales or rhonchi Cardiovascular Cardiovascular exam: Present: regular rate, normal rhythm, normal heart sounds, without murmurs rubs or gallops. - Abdominal Exam Abdominal exam: Present: soft, nondistended, general tenderness in all quadrants. Patient has wound VAC in place. Area around the wound VAC incision appears nonpurulent non-erythemic. Wound VAC draining well. More bloody than serous fluid. Bowel sounds normoactive throughout all 4 quadrants. Negative for hyper or hyperresonance. - Extremities Exam Extremities exam: Present: normal inspection, full ROM pulses equal radial and dorsal pedal bilaterally. - Back Exam Back exam: Present: normal inspection, full ROM. Absent: tenderness, CVA tenderness (R), CVA tenderness (L) - Psychiatric Psychiatric exam: Present: normal affect, normal mood - Skin Skin exam: Present: warm, dry, intact, normal color - General Limitations: no limitations General appearance: alert, in no apparent distress Course Course Narrative: He is seen and examined. Sepsis workup initiated. - Reevaluation(s) Reevaluation #1: Patient pain 9 out of 10 and will receive 1 mg Dilaudid Time: 13:20 Reevaluation #2: Patient's labs are been drawn. Still trying to attempt IV access Time: 13:40 Reevaluation #3: Patient is rechecked. Patient is difficult stick for IV. Patient requires power glide Time: 14:50 Additional Reevaluation(s): 1536 hrs. Patient is receiving 1 mg Dilaudid for pain again. - Consultations Consultation #1: Dr. Greenwood was called about patient's condition. He stated that patient has a chronic opioid abuse problem but opted to go home after procedure 5 days ago consider staying to properly manage pain. He states that cultures were taken of the fluid in her abdomen which was more than today and those cultures came back negative for infection. She is otherwise okay she can be discharged home with a Percocet to bridge her until she has follow-up. Time: 17:40 Consultation #2: Dr. Martinez has accepted patient for admission. Time: 19:08 Vital Signs Temperature 99 F 03/21/16 10:48 Pulse Rate 81 03/21/16 10:48 Respiratory Rate 16 03/21/16 10:48 Blood Pressure 131/52 03/21/16 10:48 O2 Sat by Pulse Oximetry 97 03/21/16 10:48 Temperature 99.8 F H 03/21/16 14:35 Pulse Rate 89 03/21/16 14:35 Respiratory Rate 26 03/21/16 14:35 Blood Pressure 100/72 03/21/16 14:35 O2 Sat by Pulse Oximetry 96 03/21/16 14:35 Oxygen Delivery Oxygen Delivery Room Air Abdominal Pain - MDM Narrative Medical decision making narrative: 30-year-old female with past medical history significant for wound VAC that was put and placed 5 days ago secondary to complication of abdominal surgery that was done back in January. Patient reports today with history of fever and Worsening abdominal pain 2 days. Patient saw her surgeon Dr. Cary today and was sent over to the ED for evaluation. Patient was worrisome for possible sepsis and. His workup was initiated secondary to respiratory for age of 25 and patient appeared ill with current history of recent surgery and history of fever of 103 at home. Patient stated that she took Tylenol prior to coming to the ED and patient was afebrile at presentation. Patient's workup was unremarkable with exception of her urinalysis which showed that she has a UTI. Patient's CBC was unremarkable no elevation of WBC. Patient's BMP was unremarkable, troponin was 0.00, lactate was negative at 1.0. Temperature to bring patient's pain under control. She is received re- milligrams of Dilaudid with only reducing her pain level to 6 out of 10 [address] abdomen and pelvis was taken which showed fluid collection 1.[address] Patient[address] surgeon [address] Greenwood was consulted who states that she had a bigger loculation and it was a lymphocele which cultures came back negative for bacterial growth. He recommended the patient be discharged home with bridging pain meds if needed. After my conversation with Dr. Greenwood, wound care saw the patient and states that they are concerned for the amount of blood that is draining into the wound vac. I attempted to re-contact Dr. Greenwood but he was unreachable. I recommend admitted the patient to medicine with surgical follow- up concerning her wound and an excessive amount of bleeding. Patient is started on Zosyn for UTI. Currently have no clear source the patient's fever. She has not been febrile since being here but her temperature is rising and currently 99.8. Please monitor. I discussed plan of action with patient and patient understands and agrees to treatment and plan. Patient is accepted for admission by Dr. Martinez. - Medical Records Medical records reviewed: Yes I reviewed the patient's medical records. - Lab Data Lab results reviewed: Yes I reviewed the patient's lab results. Lab results narrative: Short CBC 03/21/16 Range/Units 13:59 WBC 9.3 (4.3-11.1) K/mcL Hgb 12.4 D (11.5-15.4) g/dL Hct 38.2 (35.3-44.9) % Plt Count 342 D (140-400) K/mcL Neutrophils # 5.8 (1.6-8.9) K/mcL BMP 03/21/16 Range/Units 13:59 Sodium 137 (136-145) mEq/L Potassium 4.0 (3.5-4.5) mEq/L Chloride 107 (98-109) mEq/L Carbon Dioxide 18 L (19-29) mEq/L BUN 6 L (7-20) mg/dL Creatinine 0.62 (0.57-1.11) mg/dL Glucose 96 (70-99) mg/dL Calcium 9.3 (8.6-10.8) mg/dL Cardiac Enzymes 03/21/16 Range/Units 13:59 Troponin I 0.00 (0-0.03) ng/mL Liver Function 03/21/16 Range/Units 13:59 Total Bilirubin 0.6 (0.2-1.2) mg/dL Direct Bilirubin 0.3 (0.0-0.5) mg/dL AST 16 (5-34) Units/L ALT 16 (0-55) Units/L Alkaline Phosphatase 76 (38-126) Units/L Albumin 3.1 L (3.5-5.0) g/dL Urine 03/21/16 Range/Units 15:10 Urine Color Yellow (Yellow) Urine Clarity Cloudy A (Clear) Urine pH 6.0 (5.0-8.0) pH Units Ur Specific Rainbow 1.021 (1.010-1.025) Urine Protein Negative (Neg-Trace) mg/dL Urine Glucose (UA) Normal (Normal) mg/dL Result diagrams: 03/21/16 13:59 03/21/16 13:59 Lab Results 03/21/16 03/21/16 03/21/16 Range/Units 13:59 13:59 13:59 WBC 9.3 (4.3-11.1) K/mcL RBC 4.23 (3.82-4.97) M/mcL Hgb 12.4 D (11.5-15.4) g/dL Hct 38.2 (35.3-44.9) % MCV 90.3 (83.0-100.0) fL MCH 29.3 (28.0-33.3) pg MCHC 32.5 (31.6-35.5) g/dL RDW 14.3 (11.5-14.5) % Plt Count 342 D (140-400) K/mcL MPV 9.6 (9.4-12.4) fL Immature Gran % 0.3 (0-4) % Seg Neutrophils % 62.1 % Lymphocytes % 24.4 % Monocytes % 9.8 % Eosinophils % 2.9 % Basophils % 0.5 % Neutrophils # 5.8 (1.6-8.9) K/mcL Lymphocytes # 2.3 (0.6-4.6) K/mcL Monocytes # 0.9 (0.0-1.3) K/mcL Eosinophils # 0.3 (0.0-0.6) K/mcL Basophils # 0.1 (0.0-0.2) K/mcL Sodium 137 (136-145) mEq/L Potassium 4.0 (3.5-4.5) mEq/L Chloride 107 (98-109) mEq/L Carbon Dioxide 18 L (19-29) mEq/L BUN 6 L (7-20) mg/dL Creatinine 0.62 (0.57-1.11) mg/dL Est GFR ( Amer) > 60 (> 60) Est GFR (Non-Af Amer) > 60 (> 60) BUN/Creatinine Ratio 10 (6-26) Glucose 96 (70-99) mg/dL Calculated Osmolality 281 (280-300) Lactic Acid 1.0 (0.5-2.2) mmol/L Calcium 9.3 (8.6-10.8) mg/dL Phosphorus 2.7 (2.3-4.7) mg/dL Magnesium 1.7 (1.6-2.6) mg/dL Total Bilirubin 0.6 (0.2-1.2) mg/dL Direct Bilirubin 0.3 (0.0-0.5) mg/dL Indirect Bilirubin 0.3 (0.0-1.2) mg/dL AST 16 (5-34) Units/L ALT 16 (0-55) Units/L Alkaline Phosphatase 76 (38-126) Units/L Troponin I (0-0.03) ng/mL Serum Total Protein 7.6 (6.0-8.3) g/dL Albumin 3.1 L (3.5-5.0) g/dL Globulin 4.5 H (2.4-3.5) g/dL Albumin/Globulin Ratio 0.7 L (1.1-2.2) Urine Color (Yellow) Urine Clarity (Clear) Urine pH (5.0-8.0) pH Units Ur Specific Rainbow (1.010-1.025) Urine Protein (Neg-Trace) mg/dL Urine Glucose (UA) (Normal) mg/dL Urine Ketones (Negative) mg/dL Urine Blood (Negative) Urine Nitrite (Negative) Urine Bilirubin (Negative) Urine Urobilinogen (Normal) mg/dL Ur Leukocyte Esterase (Negative) Urine Microscopic RBC (0-3) per hpf Urine Microscopic WBC (0-3) per hpf Ur Squamous Epith Cells (None-Few) per lpf Urine Bacteria (None-Few) per hpf Hyaline Casts (None-Few) per lpf Ur Culture Indicated? (NO) 03/21/16 03/21/16 Range/Units 13:59 15:10 WBC (4.3-11.1) K/mcL RBC (3.82-4.97) M/mcL Hgb (11.5-15.4) g/dL Hct (35.3-44.9) % MCV (83.0-100.0) fL MCH (28.0-33.3) pg MCHC (31.6-35.5) g/dL RDW (11.5-14.5) % Plt Count (140-400) K/mcL MPV (9.4-12.4) fL Immature Gran % (0-4) % Seg Neutrophils % % Lymphocytes % % Monocytes % % Eosinophils % % Basophils % % Neutrophils # (1.6-8.9) K/mcL Lymphocytes # (0.6-4.6) K/mcL Monocytes # (0.0-1.3) K/mcL Eosinophils # (0.0-0.6) K/mcL Basophils # (0.0-0.2) K/mcL Sodium (136-145) mEq/L Potassium (3.5-4.5) mEq/L Chloride (98-109) mEq/L Carbon Dioxide (19-29) mEq/L BUN (7-20) mg/dL Creatinine (0.57-1.11) mg/dL Est GFR ( Amer) (> 60) Est GFR (Non-Af Amer) (> 60) BUN/Creatinine Ratio (6-26) Glucose (70-99) mg/dL Calculated Osmolality (280-300) Lactic Acid (0.5-2.2) mmol/L Calcium (8.6-10.8) mg/dL Phosphorus (2.3-4.7) mg/dL Magnesium (1.6-2.6) mg/dL Total Bilirubin (0.2-1.2) mg/dL Direct Bilirubin (0.0-0.5) mg/dL Indirect Bilirubin (0.0-1.2) mg/dL AST (5-34) Units/L ALT (0-55) Units/L Alkaline Phosphatase (38-126) Units/L Troponin I 0.00 (0-0.03) ng/mL Serum Total Protein (6.0-8.3) g/dL Albumin (3.5-5.0) g/dL Globulin (2.4-3.5) g/dL Albumin/Globulin Ratio (1.1-2.2) Urine Color Yellow (Yellow) Urine Clarity Cloudy A (Clear) Urine pH 6.0 (5.0-8.0) pH Units Ur Specific Rainbow 1.021 (1.010-1.025) Urine Protein Negative (Neg-Trace) mg/dL Urine Glucose (UA) Normal (Normal) mg/dL Urine Ketones Negative (Negative) mg/dL Urine Blood Negative (Negative) Urine Nitrite Negative (Negative) Urine Bilirubin Negative (Negative) Urine Urobilinogen Normal (Normal) mg/dL Ur Leukocyte Esterase Trace H (Negative) Urine Microscopic RBC 3-5 H (0-3) per hpf Urine Microscopic WBC 5-15 H (0-3) per hpf Ur Squamous Epith Cells Many H (None-Few) per lpf Urine Bacteria Moderate H (None-Few) per hpf Hyaline Casts None Seen (None-Few) per lpf Ur Culture Indicated? YES A (NO) - Radiology Data Radiology results reviewed: Yes I reviewed the patient's radiology results. Chest X-Ray 03/21/16 13:19 IMPRESSION: No acute findings. D/ / Yolanda Banda MD / Yolanda Banda MD Interpreting Provider: Yolanda Banda MD Abdomen/Pelvis CT 03/21/16 15:13 IMPRESSION: Postprocedural changes with resolution of the fluid within the pannus with open defect communicating to the skin. At the far superior aspect of the pannus cavity in the left flank, there is a residual small amount of fluid measuring 1.5 cm in size. No other acute abnormality within the abdomen or pelvis. D/ / 03/21/2016 17:01:47 Jeff London MD / [facility] Interpreting Provider: Jeff London MD - EKG Data EKG attestation: Yes I reviewed and interpreted this EKG. EKG results narrative: EKG taken 03/21/2016 at 1343 hrs. shows a sinus rhythm at a ventricular rate of 81 beats a minute with no acute ST elevations or depressions and a leads. No T wave inversion and no QT prolongation or QRS widening. EKG was compared to previous EKG taken 12/06/2015 which shows an equivalent morphology.
[2016-03-21] MEDS ORDERED: Piperacillin/Tazobactam 3.375 GM in D5% in Water (Mini-Bag+) 100 ML IVPB ONE (19:35)
[2016-03-21] MEDS ORDERED: Ondansetron 4 MG/2 ML VIAL IV ONE (19:48)
--- NOTE | 2016-03-21 19:51 | Emergency Department Note ---
START Narrative - START START: For this encounter, I have reviewed the resident, LOAD TALLIER, or PA documentation, treatment plan, and medical decision making; and I have had face to face time with this patient. 30-year-old female presents with concerns of possible abscess or cellulitis in her pannus. Patient had resection of the past by Dr. Greenwood and now has a wound VAC in place. Patient states that her pain has increased over the past 2 days and she was concerned about fevers. Patient states that she had a fever of 103 at home. Patient was seen by the stars specialist today and was referred to the emergency department for further evaluation. CT of her abdomen and pelvis does not reveal acute abscess and shows improvement of fluid that was retained after the surgery. Wound care nurse reevaluated the wound VAC and stated that she had a diffuse amount of bleeding coming from the wound. Patient does not feel safe to return home. She will be admitted to the hospital for treatment of cellulitis and pain control.
[2016-03-21] MEDS ORDERED: Benzonatate 100 MG CAPSULE PO PRN (20:12)
[2016-03-21] MEDS ORDERED: Ipratropium/Albuterol Neb 3 ML IH PRN (20:12)
[2016-03-21] MEDS ORDERED: Acetaminophen 325 MG TABLET PO PRN (20:12)
[2016-03-21] MEDS ORDERED: Naloxone 0.4 MG/ML INJ IVP PRN (20:12)
[2016-03-21] MEDS ORDERED: Melatonin 3 MG TABLET PO PRN (20:22)
[2016-03-21 22:20] LABS: Ionized Calcium 1.11 mmol/L (1.15-1.35)
[2016-03-21 22:23] LABS: VBG HCO3 22.2 mEq/L (21-27); VBG PH 7.41 pH Units (7.32-7.42)
[2016-03-21 22:25] LABS: Phosphorous 2.8 mg/dL (2.3-4.7)
[2016-03-21] MEDS: Gabapentin 300 MG CAPSULE PO SCH (22:25)
[2016-03-21] MEDS: 0.9 % Sodium Chloride 1,000 ML IVC SCH (22:26)
[2016-03-21] MEDS: Pantoprazole 40 MG VIAL IVP SCH (22:34)
[2016-03-21] MEDS: *HR* OxyCODONE Immed Rel 5 MG TABLET PO PRN (22:34)
[2016-03-21] MEDS: *HR* Promethazine 25 MG/ML VIAL IVP PRN (22:34)
--- NOTE | 2016-03-21 23:00 | Internal Med History&Physical ---
Date of Encounter: 03/21/16 Time of Encounter: 20:00 Assessment and Plan (1) Intractable abdominal pain Status: Acute . (2) Polysubstance dependence including opioid type drug, episodic abuse Status: Acute . (3) UTI (urinary tract infection) Status: Acute . Qualifiers: Qualified Code(s): N39.0 - Urinary tract infection, site not specified; R31.9 - Hematuria, unspecified (4) Abdominal wall cellulitis Status: Acute . (5) Cocaine abuse Status: Chronic . (6) Marijuana abuse Status: Chronic . (7) Morbid obesity with BMI of 45.0-49.9, adult Status: Chronic . (8) Nonhealing surgical wound Status: Chronic . Qualifiers: Qualified Code(s): T81.89XD - Other complications of procedures, not elsewhere classified, subsequent encounter (9) Tobacco abuse Status: Chronic . Internal Medicine - H&P: HPI Chief complaint: Intractable abdominal pain Admitted From: Emergency Dept Plans for Post Hospital Care: Home History of present illness: Ms. Mosher is a 30 year old female with history significant for polysubstance abuse (IVDU and NON-IVDU), depression and anxiety/bipolar disorder/PTSD, hypertension, chronic pain syndrome morbid obesity, nicotine dependency. The patient was visited and interviewed and examined. Patient is admitted to [facility] emergency room with complaints of intractable abdominal pain and fever with concern for postprocedural abscess. History significant for recurrent panniculitis, pannicular drainage, status post panniculectomy. Surgery on this performed January 2016. Status post placement of wound VAC 03/17/2016. Subsequent evaluation for acute relapsing fever. The patient underwent panniculectomy midline wound present for approximately 2 years which failed to heal. After surgery she developed a lymphocele associated with abdominal pain and pannicular drainage and low grade fever. The patient historically has been noncompliant with recommended therapies as well as recommended clinic follow-ups postoperatively. CT of the abdomen that demonstrated worsening subcutaneous abscess associated with this finding and she was ultimately taken to the operating theater for incision and drainage and low abdominal wound VAC placement. Recommendation was for 3 times weekly wound VAC changes via home health. All cultures associated with surgery returned negative. No pigmented antibiotic coverage was deemed necessary upon discharge. Clinical status initially upon discharge was favorable with no reports of pain nausea and emesis fever on the date of discharge. Drainage tube placed by interventional radiology and outpatient oral antibiotic therapy failed following dislodgment of drainage to sleeping. Findings in the ED: Temperature 99.8 pulse 81 respirations 16 BP 117/68. O2 saturation 96% room air. WBC 9 hemoglobin 4.4 platelets 342,000. Differential normal. Metabolic panel normal except carbon dioxide 18. BUN 6 creatinine 0.62. Lactic acid 1.3. Hepatic function normal. Urinalysis trace leukocyte esterase. 5 RBC. 15 WBC. Many epithelial cells. Moderate bacteria. Urine drug screen positive for opiates. Portable chest x-ray demonstrates no acute cardiopulmonary process. CT abdomen and pelvis with intravenous contrast demonstrates postprocedural changes with resolution of fluid within the pannus. Open defect communicating to the skin noted. At superior aspect of pannus a cavity noted in the left flank small residual amount of fluid measuring 1.5 cm in size. Evidently within the abdomen or pelvis seen. Preliminary impressions suggest complicated surgical wound status post panniculectomy and development of lymphocele associated with abdominal pain and pannicular drainage. Low-grade intermittent fever reported. Multiple interventions since surgery of January 2016. CT suggests a small residual fluid collection. Uncertain if infectious or not as previous cultures all returned negative. Routine urinalysis suggest possible incidental UTI. Screening studies otherwise benign. Difficult management course given patient' s history of medical treatment noncompliance as well as obesity complicated application for wound VAC therapy. History is significant for polysubstance abuse and concern for drug-seeking behaviors will be monitored closely. The patient presents further acute risk for clinical decline and morbidity given her current presentation, recent surgical histories and comorbidities. Workup and treatments will progress comprehensively. Cumulative laboratory and radiographic data base was reviewed, considered and discussed. Pertinent ancillary medical records including ECW and PCI documentation was reviewed and considered. Given the patient's presenting concerns, past medical history, clinical findings and symptoms, she is admitted at this time will undergo further evaluation and disposition. Orders were written as per the computerized physician mountain guide system.......................................................................... .................... Consultative opinion and will be sought as clinical circumstances justify. Initial consultative opinions have been requested of general surgery and wound care. Pain management needs will be addressed. Laboratory and radiographic data base will be updated as appropriate. Studies include: Cultures blood urine and wound, CPK, LDH, cardiac injury panel, BNP, PT /INR, APTT, metabolic and hematologic panel, magnesium, phosphorus, ionized calcium, thyroid panel, lipid profile, A1c, C-peptide, CRP, sed rate, UA, UDS, blood gas, lactic acid, serologies, etc. Precautions: Aspiration, fall, delirium protocol/surveillance initiated. Telemetry with continuous hemodynamic monitoring and pulse oximetry initiated. Empiric antibody coverage: Intravenous vancomycin and Zosyn pending culture data. Special studies: CT Abd/Pelvis, chest x-ray, telemetry, EKG. Pulmonary toilet: Incentive spirometry. Aerosol bronchodilator, mucolytic, antitussivePRN. Supplemental oxygen. Corticosteroid therapyPRN. CPAP/BiPAP supplemental oxygen deliveryPRN. Aerosol Mucomyst therapyPRN. Fluid and electrolyte repletion efforts will proceed. Careful attention to fluid balance and renal recovery will be emphasized. Avoidance of nephrotoxic exposure and adverse drug drug interaction in the setting of impaired renal function will be monitored closely. Acute coronary syndrome protocol/surveillance initiated. DVT and PUD prophylaxis initiated: PPI therapy, intermittent pneumatic cuffs/ TEDs. Subcutaneous heparinLovenox. Early ambulation will be encouraged. Immunization updates recommended. Influenza and pneumococcal vaccinations as part of ongoing preventative healthcare recommendations strongly recommended. Smoking cessation counseling briefly addressed. Patient is a nonsmoker. Advanced care directive discussion briefly addressed. Patient does not declare any healthcare restrictions at this time. Cardiovascular risk appraisal and cardiovascular risk reduction efforts will be emphasized. Physical and occupational therapy may be consulted to evaluate/assess patient's functional capacity and progress mobility if her circumstances permit. Nutrition/dietary education counseling may be considered as circumstances permit. Outpatient medication schedules will be reviewed, confirmed and facilitated as appropriate. Reconciliation of home treatments including adjustments, substitutions and reintroduction into the treatment regimen will address necessary maintenance therapies for chronic pre-existing medical conditions. Plan of care has been reviewed and discussed in detail with the patient. Questions addressed. Hospital course will depend upon clinical findings, treatment response and potential consultative interventions. Patient is a risk for further acute clinical decline due to her presenting chief complaints, findings and comorbid conditions. Condition is serious. Prognosis is guarded. CODE STATUS is full. Past Med Surg Social Fam HX - Past Medical History Source: old records reviewed Medical history: arthritis, hypertension, other (Endometriosis.) Psychiatric history: anxiety, bipolar, depression, PTSD, other - Past Surgical History Surgical History: (x4.), cholecystectomy, herniorrhaphy (x5. Bellybutton extraction.), other (Tonsillectomy adenoidectomy. Panniculectomy.) - Social History Smoking Status: Current every day smoker Smokeless Tobacco Status: No Alcohol use: none Drug use: cocaine, opiates, marijuana, prescription drug abuse, other Occupational status: unemployed Current living situation: With Family Activity Level: Independent ambulation, Mostly sedentary Recent Out of Country Travel Within the Last 8 Weeks: No Exposure or Possible Exposure to Illness During Travel: No - Family History Father Adopted: No Family Member Ethnicity: Non- Living Status: Still Living Hx Family Cardiac Disorders: Yes Hx Family Respiratory Disorders: No Hx Family Cancer: Yes Hx Family GI Disorders: No Hx Family Endocrine Disorder: Yes Hx Family Neuromuscular Disorders: No Hx Family Neurologic Disorders: No Hx Family HEENT Disorders: No Hx Family Autoimmune Disorders: No Mother Hx Family Endocrine Disorder: Yes (Graves Disease) Internal Medicine - H&P: Meds FLUoxetine HCl [Prozac] 60 mg PO DAILY 11/21/15 [History] Gabapentin [Neurontin] 600 mg PO TID 02/23/16 [History] Ciprofloxacin [Cipro] 500 mg PO BID 7 Days 04/11/16 [Rx] Docusate [Colace] 100 mg PO DAILY #7 capsule 04/11/16 [Rx] OxyCODONE/APAP 10/325 [Percocet 10/325 MG] 1 each PO Q6HR PRN #24 tablet [Rx] Allergies ketorolac [From Toradol] Allergy (Verified 03/16/16 09:25) Rash All Systems PM: A 10-system review of systems was performed and is negative for pertinent findings except as documented above in the HPI. - Constitutional Constitutional: as per HPI, malaise, no chills, no fever(s), no night sweats - EENT Eyes: as per HPI, no change in vision, no discharge, no pain, no photophobia Ears: as per HPI, no ear discharge, no ear pain, no tinnitus Nose, mouth and throat: as per HPI, no dysphagia, no nasal discharge, no neck pain, no sore throat - Cardiovascular Cardiovascular ROS IM: as per HPI, no chest pain, no diaphoresis, no dyspnea, no lightheadedness, no palpitations, no syncope - Respiratory Respiratory: as per HPI, no cough, no dyspnea, no wheezing, no excessive phlegm production - Gastrointestinal Gastrointestinal: as per HPI, abdominal pain, cramping, other, no diarrhea, no hematemesis, no hematochezia, no melena, no nausea, no vomiting - Genitourinary Genitourinary: as per HPI, no change in urinary stream, no dysuria, no flank pain, no hematuria - Musculoskeletal Musculoskeletal ROS IM: as per HPI, no numbness, no tingling - Integumentary Integumentary IM: as per HPI, erythema, non-healing lesions, rash, skin ulcer, other, no unusual bruising - Neurological Neurological ROS: as per HPI, no confusion, no convulsions, no focal weakness, no numbness, no tingling, no tremor(s) - Psychiatric Psychiatric: as per HPI - Endocrine Endocrine IM: as per HPI - Hematologic/Lymphatic Hematologic/Lymphatic: as per HPI, no easy bruising - Allergic/Immunologic Allergic/Immunologic: as per HPI - Constitutional Vitals: Temp Pulse Resp BP Pulse Ox 98.9 F 81 16 127/80 96 03/21/16 21:12 03/21/16 21:12 03/21/16 21:12 03/21/16 21:12 03/21/16 21:12 General appearance: Present: mild distress, A&O X 3, morbidly obese, answers questions appropriately - Head Head exam: Present: atraumatic, normocephalic - Eye Eye exam: Present: EOMI, PERRL, conjuntiva pink, sclera anicteric Pupils: Present: normal accommodation, PERRL - ENT ENT exam: Present: mucous membranes moist, normal oropharynx - Neck Neck exam general surgery: Present: full ROM, supple, trachea midline. Absent: lymphadenopathy - Respiratory Respiratory exam: Present: chest wall tenderness, decreased breath sounds, CTAB. Absent: accessory muscle use, rales, rhonchi, wheezes - Cardiovascular Cardiovascular exam: Present: distant heart sounds, RRR, +S1, +S2. Absent: diastolic murmur, gallop, rubs, systolic murmur - GI/Abdominal GI/Abdominal exam: Present: diminished bowel sounds, distended, guarding, normal bowel sounds, soft, tenderness, no peritoneal signs - Extremities Exam Extremities exam: Present: full ROM, warm, radial pulses palpable and symetrical. Absent: calf tenderness, cyanotic, pedal edema - Neurological Exam Neurological exam: Present: alert, CN II-XII intact, oriented X3, no focal deficits. Absent: pronater drift, facial droop, speech deficit - Psychiatric Psychiatric exam: Present: anxious, normal affect, normal mood - Skin Skin exam: Present: dry, erythema, warm - Expanded Skin Exam Type of lesion: Present: rash (Pannus et al. Wound VAC in place.) Distribution of rash: Present: abdomen Description of rash: Present: erythematous, indurated, swelling, tenderness Internal Med - H&P Results - Labs CBC & Chem 7: 03/21/16 13:59 03/21/16 13:59 Labs: Cardiac Enzymes 03/21/16 Range/Units 22:05 Troponin I 0.00 (0-0.03) ng/mL Abnormal lab results ESR >= 130 mm/hr (0-15) H 03/21/16 22:05 VBG pCO2 35 mmHg (41-51) L 03/21/16 22:05 VBG pO2 117 mmHg (25-40) H 03/21/16 22:05 Carbon Dioxide 18 mEq/L (19-29) L 03/21/16 13:59 BUN 6 mg/dL (7-20) L 03/21/16 13:59 Ionized Calcium 1.11 mmol/L (1.15-1.35) L 03/21/16 22:05 C-Reactive Protein 90 mg/L (Less than 5) H 03/21/16 22:05 Albumin 3.1 g/dL (3.5-5.0) L 03/21/16 13:59 Globulin 4.5 g/dL (2.4-3.5) H 03/21/16 13:59 Albumin/Globulin Ratio 0.7 (1.1-2.2) L 03/21/16 13:59 HDL Cholesterol 25 mg/dL (40-59) L 03/22/16 07:59 Urine Clarity Cloudy (Clear) A 03/21/16 15:10 Ur Leukocyte Esterase Trace (Negative) H 03/21/16 15:10 Urine Microscopic RBC 3-5 per hpf (0-3) H 03/21/16 15:10 Urine Microscopic WBC 5-15 per hpf (0-3) H 03/21/16 15:10 Ur Squamous Epith Cells Many per lpf (None-Few) H 03/21/16 15:10 Urine Bacteria Moderate per hpf (None-Few) H 03/21/16 15:10 Ur Culture Indicated? YES (NO) A 03/21/16 15:10 Urine Opiates Screen Positive ng/mL (Czjmqk=017) H 03/22/16 09:05 Laboratory Last Values WBC 9.3 K/mcL (4.3-11.1) 03/21/16 13:59 RBC 4.23 M/mcL (3.82-4.97) 03/21/16 13:59 Hgb 12.4 g/dL (11.5-15.4) D 03/21/16 13:59 Hct 38.2 % (35.3-44.9) 03/21/16 13:59 MCV 90.3 fL (83.0-100.0) 03/21/16 13:59 MCH 29.3 pg (28.0-33.3) 03/21/16 13:59 MCHC 32.5 g/dL (31.6-35.5) 03/21/16 13:59 RDW 14.3 % (11.5-14.5) 03/21/16 13:59 Plt Count 342 K/mcL (140-400) D 03/21/16 13:59 MPV 9.6 fL (9.4-12.4) 03/21/16 13:59 Immature Gran % 0.3 % (0-4) 03/21/16 13:59 Seg Neutrophils % 62.1 % 03/21/16 13:59 Lymphocytes % 24.4 % 03/21/16 13:59 Monocytes % 9.8 % 03/21/16 13:59 Eosinophils % 2.9 % 03/21/16 13:59 Basophils % 0.5 % 03/21/16 13:59 Neutrophils # 5.8 K/mcL (1.6-8.9) 03/21/16 13:59 Lymphocytes # 2.3 K/mcL (0.6-4.6) 03/21/16 13:59 Monocytes # 0.9 K/mcL (0.0-1.3) 03/21/16 13:59 Eosinophils # 0.3 K/mcL (0.0-0.6) 03/21/16 13:59 Basophils # 0.1 K/mcL (0.0-0.2) 03/21/16 13:59 ESR >= 130 mm/hr (0-15) H 03/21/16 22:05 VBG pH 7.41 pH Units (7.32-7.42) 03/21/16 22:05 VBG pCO2 35 mmHg (41-51) L 03/21/16 22:05 VBG pO2 117 mmHg (25-40) H 03/21/16 22:05 VBG HCO3 22.2 mEq/L (21-27) 03/21/16 22:05 Sodium 137 mEq/L (136-145) 03/21/16 13:59 Potassium 4.0 mEq/L (3.5-4.5) 03/21/16 13:59 Chloride 107 mEq/L (98-109) 03/21/16 13:59 Carbon Dioxide 18 mEq/L (19-29) L 03/21/16 13:59 BUN 6 mg/dL (7-20) L 03/21/16 13:59 Creatinine 0.62 mg/dL (0.57-1.11) 03/21/16 13:59 Est GFR ( Amer) > 60 (> 60) 03/21/16 13:59 Est GFR (Non-Af Amer) > 60 (> 60) 03/21/16 13:59 BUN/Creatinine Ratio 10 (6-26) 03/21/16 13:59 Glucose 96 mg/dL (70-99) 03/21/16 13:59 Est Mean Plasma Glucose 91 mg/dl 03/22/16 07:59 Hemoglobin A1c 4.8 % (-5.6) 03/22/16 07:59 Calculated Osmolality 281 (280-300) 03/21/16 13:59 Lactic Acid 1.4 mmol/L (0.5-2.2) 03/21/16 18:14 Calcium 9.3 mg/dL (8.6-10.8) 03/21/16 13:59 Ionized Calcium 1.11 mmol/L (1.15-1.35) L 03/21/16 22:05 Phosphorus 2.8 mg/dL (2.3-4.7) 03/21/16 22:05 Magnesium 2.0 mg/dL (1.6-2.6) 03/21/16 22:05 Total Bilirubin 0.6 mg/dL (0.2-1.2) 03/21/16 13:59 Direct Bilirubin 0.3 mg/dL (0.0-0.5) 03/21/16 13:59 Indirect Bilirubin 0.3 mg/dL (0.0-1.2) 03/21/16 13:59 AST 16 Units/L (5-34) 03/21/16 13:59 ALT 16 Units/L (0-55) 03/21/16 13:59 Alkaline Phosphatase 76 Units/L (38-126) 03/21/16 13:59 Troponin I 0.00 ng/mL (0-0.03) 03/22/16 14:32 C-Reactive Protein 90 mg/L (Less than 5) H 03/21/16 22:05 Serum Total Protein 7.6 g/dL (6.0-8.3) 03/21/16 13:59 Albumin 3.1 g/dL (3.5-5.0) L 03/21/16 13:59 Globulin 4.5 g/dL (2.4-3.5) H 03/21/16 13:59 Albumin/Globulin Ratio 0.7 (1.1-2.2) L 03/21/16 13:59 Triglycerides 85 mg/dL (< 150) 03/22/16 07:59 Cholesterol 98 mg/dL (< 200) 03/22/16 07:59 LDL Cholesterol, Calc 56 mg/dL (0-99) 03/22/16 07:59 VLDL Cholesterol, Calc 17 mg/dL (< 31) 03/22/16 07:59 HDL Cholesterol 25 mg/dL (40-59) L 03/22/16 07:59 Cholesterol/HDL Ratio 3.9 (0-4.9) 03/22/16 07:59 TSH 0.946 mcIU/mL (0.350-4.840) 03/22/16 07:59 Urine Color Yellow (Yellow) 03/21/16 15:10 Urine Clarity Cloudy (Clear) A 03/21/16 15:10 Urine pH 6.0 pH Units (5.0-8.0) 03/21/16 15:10 Ur Specific [place] 1.021 (1.010-1.025) 03/21/16 15:10 Urine Protein Negative mg/dL (Neg-Trace) 03/21/16 15:10 Urine Glucose (UA) Normal mg/dL (Normal) 03/21/16 15:10 Urine Ketones Negative mg/dL (Negative) 03/21/16 15:10 Urine Blood Negative (Negative) 03/21/16 15:10 Urine Nitrite Negative (Negative) 03/21/16 15:10 Urine Bilirubin Negative (Negative) 03/21/16 15:10 Urine Urobilinogen Normal mg/dL (Normal) 03/21/16 15:10 Ur Leukocyte Esterase Trace (Negative) H 03/21/16 15:10 Urine Microscopic RBC 3-5 per hpf (0-3) H 03/21/16 15:10 Urine Microscopic WBC 5-15 per hpf (0-3) H 03/21/16 15:10 Ur Squamous Epith Cells Many per lpf (None-Few) H 03/21/16 15:10 Urine Bacteria Moderate per hpf (None-Few) H 03/21/16 15:10 Hyaline Casts None Seen per lpf (None-Few) 03/21/16 15:10 Ur Culture Indicated? YES (NO) A 03/21/16 15:10 Urine Opiates Screen Positive ng/mL (Uwiymt=476) H 03/22/16 09:05 Ur Barbiturates Screen Negative ng/mL (Vlcsao=976) 03/22/16 09:05 Ur Phencyclidine Scrn Negative ng/mL (Cutoff=25) 03/22/16 09:05 Ur Amphetamines Screen Negative ng/mL (Srqezh=2491) 03/22/16 09:05 U Benzodiazepines Scrn Negative ng/mL (Xzexkb=897) 03/22/16 09:05 Urine Cocaine Screen Negative ng/mL (Cutoff= 300) 03/22/16 09:05 U Marijuana (THC) Screen Negative ng/mL (Cutoff = 50) 03/22/16 09:05 - ABG Interpretation ABG results: 03/21/16 22:05 VBG pH 7.41 VBG pCO2 35 L VBG pO2 117 H VBG HCO3 22.2 - Impressions Vital Signs Temp Pulse Resp BP Pulse Ox 03/21/16 21:12 98.9 F 81 16 127/80 96 03/21/16 20:03 16 117/64 03/21/16 19:11 77 16 129/61 97 03/21/16 16:51 85 20 120/61 99 03/21/16 15:48 96 20 134/76 95 03/21/16 14:35 99.8 F H 89 26 100/72 96 03/21/16 10:48 99 F 81 16 131/52 97 Intake and Output 03/21/16 03/21/16 03/21/16 07:59 15:59 23:59 Intake Total 1000 / 1000 Balance 1000 / 1000 Intake: IV Fluids 1000 / 1000 Other: Stool Characteristics Normal for Patient Stool Color Brown Weight 110.223 kg 124.001 kg Patient Weight 03/21/16 23:59 Weight 124.001 kg Short CBC 03/21/16 Range/Units 13:59 WBC 9.3 (4.3-11.1) K/mcL Hgb 12.4 D (11.5-15.4) g/dL Hct 38.2 (35.3-44.9) % Plt Count 342 D (140-400) K/mcL Neutrophils # 5.8 (1.6-8.9) K/mcL BMP 03/21/16 Range/Units 13:59 Sodium 137 (136-145) mEq/L Potassium 4.0 (3.5-4.5) mEq/L Chloride 107 (98-109) mEq/L Carbon Dioxide 18 L (19-29) mEq/L BUN 6 L (7-20) mg/dL Creatinine 0.62 (0.57-1.11) mg/dL Glucose 96 (70-99) mg/dL Calcium 9.3 (8.6-10.8) mg/dL Cardiac Enzymes 03/21/16 03/21/16 Range/Units 22:05 13:59 Troponin I 0.00 0.00 (0-0.03) ng/mL Liver Function 03/21/16 Range/Units 13:59 Total Bilirubin 0.6 (0.2-1.2) mg/dL Direct Bilirubin 0.3 (0.0-0.5) mg/dL AST 16 (5-34) Units/L ALT 16 (0-55) Units/L Alkaline Phosphatase 76 (38-126) Units/L Albumin 3.1 L (3.5-5.0) g/dL Urine 03/21/16 Range/Units 15:10 Urine Color Yellow (Yellow) Urine Clarity Cloudy A (Clear) Urine pH 6.0 (5.0-8.0) pH Units Ur Specific [place] 1.021 (1.010-1.025) Urine Protein Negative (Neg-Trace) mg/dL Urine Glucose (UA) Normal (Normal) mg/dL Abnormal lab results ESR >= 130 mm/hr (0-15) H 03/21/16 22:05 VBG pCO2 35 mmHg (41-51) L 03/21/16 22:05 VBG pO2 117 mmHg (25-40) H 03/21/16 22:05 Carbon Dioxide 18 mEq/L (19-29) L 03/21/16 13:59 BUN 6 mg/dL (7-20) L 03/21/16 13:59 Ionized Calcium 1.11 mmol/L (1.15-1.35) L 03/21/16 22:05 C-Reactive Protein 90 mg/L (Less than 5) H 03/21/16 22:05 Albumin 3.1 g/dL (3.5-5.0) L 03/21/16 13:59 Globulin 4.5 g/dL (2.4-3.5) H 03/21/16 13:59 Albumin/Globulin Ratio 0.7 (1.1-2.2) L 03/21/16 13:59 Urine Clarity Cloudy (Clear) A 03/21/16 15:10 Ur Leukocyte Esterase Trace (Negative) H 03/21/16 15:10 Urine Microscopic RBC 3-5 per hpf (0-3) H 03/21/16 15:10 Urine Microscopic WBC 5-15 per hpf (0-3) H 03/21/16 15:10 Ur Squamous Epith Cells Many per lpf (None-Few) H 03/21/16 15:10 Urine Bacteria Moderate per hpf (None-Few) H 03/21/16 15:10 Ur Culture Indicated? YES (NO) A 03/21/16 15:10 03/21/16 22:05 VBG pH 7.41 VBG pCO2 35 L VBG pO2 117 H VBG HCO3 22.2 Allergies Allergy/AdvReac Type Severity Reaction Status Date / Time ketorolac [From Toradol] Allergy Rash Verified 03/16/16 09:25 Laboratory Results WBC 9.3 K/mcL (4.3-11.1) 03/21/16 13:59 RBC 4.23 M/mcL (3.82-4.97) 03/21/16 13:59 Hgb 12.4 g/dL (11.5-15.4) D 03/21/16 13:59 Hct 38.2 % (35.3-44.9) 03/21/16 13:59 MCV 90.3 fL (83.0-100.0) 03/21/16 13:59 MCH 29.3 pg (28.0-33.3) 03/21/16 13:59 MCHC 32.5 g/dL (31.6-35.5) 03/21/16 13:59 RDW 14.3 % (11.5-14.5) 03/21/16 13:59 Plt Count 342 K/mcL (140-400) D 03/21/16 13:59 MPV 9.6 fL (9.4-12.4) 03/21/16 13:59 Immature Gran % 0.3 % (0-4) 03/21/16 13:59 Seg Neutrophils % 62.1 % 03/21/16 13:59 Lymphocytes % 24.4 % 03/21/16 13:59 Monocytes % 9.8 % 03/21/16 13:59 Eosinophils % 2.9 % 03/21/16 13:59 Basophils % 0.5 % 03/21/16 13:59 Neutrophils # 5.8 K/mcL (1.6-8.9) 03/21/16 13:59 Lymphocytes # 2.3 K/mcL (0.6-4.6) 03/21/16 13:59 Monocytes # 0.9 K/mcL (0.0-1.3) 03/21/16 13:59 Eosinophils # 0.3 K/mcL (0.0-0.6) 03/21/16 13:59 Basophils # 0.1 K/mcL (0.0-0.2) 03/21/16 13:59 ESR >= 130 mm/hr (0-15) H 03/21/16 22:05 VBG pH 7.41 pH Units (7.32-7.42) 03/21/16 22:05 VBG pCO2 35 mmHg (41-51) L 03/21/16 22:05 VBG pO2 117 mmHg (25-40) H 03/21/16 22:05 VBG HCO3 22.2 mEq/L (21-27) 03/21/16 22:05 Sodium 137 mEq/L (136-145) 03/21/16 13:59 Potassium 4.0 mEq/L (3.5-4.5) 03/21/16 13:59 Chloride 107 mEq/L (98-109) 03/21/16 13:59 Carbon Dioxide 18 mEq/L (19-29) L 03/21/16 13:59 BUN 6 mg/dL (7-20) L 03/21/16 13:59 Creatinine 0.62 mg/dL (0.57-1.11) 03/21/16 13:59 Est GFR ( Amer) > 60 (> 60) 03/21/16 13:59 Est GFR (Non-Af Amer) > 60 (> 60) 03/21/16 13:59 BUN/Creatinine Ratio 10 (6-26) 03/21/16 13:59 Glucose 96 mg/dL (70-99) 03/21/16 13:59 Calculated Osmolality 281 (280-300) 03/21/16 13:59 Lactic Acid 1.4 mmol/L (0.5-2.2) 03/21/16 18:14 Calcium 9.3 mg/dL (8.6-10.8) 03/21/16 13:59 Ionized Calcium 1.11 mmol/L (1.15-1.35) L 03/21/16 22:05 Phosphorus 2.8 mg/dL (2.3-4.7) 03/21/16 22:05 Magnesium 2.0 mg/dL (1.6-2.6) 03/21/16 22:05 Total Bilirubin 0.6 mg/dL (0.2-1.2) 03/21/16 13:59 Direct Bilirubin 0.3 mg/dL (0.0-0.5) 03/21/16 13:59 Indirect Bilirubin 0.3 mg/dL (0.0-1.2) 03/21/16 13:59 AST 16 Units/L (5-34) 03/21/16 13:59 ALT 16 Units/L (0-55) 03/21/16 13:59 Alkaline Phosphatase 76 Units/L (38-126) 03/21/16 13:59 Troponin I 0.00 ng/mL (0-0.03) 03/21/16 22:05 C-Reactive Protein 90 mg/L (Less than 5) H 03/21/16 22:05 Serum Total Protein 7.6 g/dL (6.0-8.3) 03/21/16 13:59 Albumin 3.1 g/dL (3.5-5.0) L 03/21/16 13:59 Globulin 4.5 g/dL (2.4-3.5) H 03/21/16 13:59 Albumin/Globulin Ratio 0.7 (1.1-2.2) L 03/21/16 13:59 Urine Color Yellow (Yellow) 03/21/16 15:10 Urine Clarity Cloudy (Clear) A 03/21/16 15:10 Urine pH 6.0 pH Units (5.0-8.0) 03/21/16 15:10 Ur Specific [place] 1.021 (1.010-1.025) 03/21/16 15:10 Urine Protein Negative mg/dL (Neg-Trace) 03/21/16 15:10 Urine Glucose (UA) Normal mg/dL (Normal) 03/21/16 15:10 Urine Ketones Negative mg/dL (Negative) 03/21/16 15:10 Urine Blood Negative (Negative) 03/21/16 15:10 Urine Nitrite Negative (Negative) 03/21/16 15:10 Urine Bilirubin Negative (Negative) 03/21/16 15:10 Urine Urobilinogen Normal mg/dL (Normal) 03/21/16 15:10 Ur Leukocyte Esterase Trace (Negative) H 03/21/16 15:10 Urine Microscopic RBC 3-5 per hpf (0-3) H 03/21/16 15:10 Urine Microscopic WBC 5-15 per hpf (0-3) H 03/21/16 15:10 Ur Squamous Epith Cells Many per lpf (None-Few) H 03/21/16 15:10 Urine Bacteria Moderate per hpf (None-Few) H 03/21/16 15:10 Hyaline Casts None Seen per lpf (None-Few) 03/21/16 15:10 Ur Culture Indicated? YES (NO) A 03/21/16 15:10 Impressions Chest X-Ray 03/21/16 13:19 IMPRESSION: No acute findings. D/ / Yolanda Banda MD / Yolanda Banda MD Interpreting Provider: Yolanda Banda MD Abdomen/Pelvis CT 03/21/16 15:13 IMPRESSION: Postprocedural changes with resolution of the fluid within the pannus and open defect communicating to the skin. At the far superior aspect of the pannus cavity in the left flank, there is a residual small amount of fluid measuring 1.5 cm in size. No other acute abnormality within the abdomen or pelvis. D/ / 03/21/2016 17:01:47 Jeff London MD / [email or web address] Interpreting Provider: Jeff London MD
[2016-03-22] MEDS: *HR* HYDROmorphone (PF) 1 MG/ML SYRINGE IVP PRN ×3 (00:45→11:36)
[2016-03-22] MEDS: *HR* OxyCODONE Immed Rel 5 MG TABLET PO PRN ×3 (03:04→13:49)
[2016-03-22] MEDS: *HR* Promethazine 25 MG/ML VIAL IVP PRN (05:42)
[2016-03-22] MEDS: Pantoprazole 40 MG VIAL IVP SCH (08:07)
[2016-03-22] MEDS: Gabapentin 300 MG CAPSULE PO SCH ×2 (08:07→13:49)
[2016-03-22 08:25] LABS: Chol/HDL Ratio 3.9 (0-4.9)
[2016-03-22 08:46] LABS: Thyroid Stimulating Hormone 0.946 mcIU/mL (0.350-4.840)
[2016-03-22 09:00] LABS: Hemoglobin A1C 4.8 %
[2016-03-22] MEDS ORDERED: FLUoxetine 20 MG CAPSULE PO SCH (09:00)
[2016-03-22 09:25] LABS: Amphetamine Screen,Urine Negative ng/mL (Cutoff=1000); Barbiturate Screen,Urine Negative ng/mL (Cutoff=200); Benzodiazepines Screen,Urine Negative ng/mL (Cutoff=200); Cannabinoid Screen,Urine Negative ng/mL (Cutoff = 50); Cocaine Screen,Urine Negative ng/mL (Cutoff= 300); Opiate Screen,Urine Positive ng/mL (Cutoff=300); Phencyclidine Screen,Urine Negative ng/mL (Cutoff=25)
[2016-03-22] MEDS: 0.9 % Sodium Chloride 1,000 ML IVC SCH (11:37)
[2016-03-22] MEDS ORDERED: *HR* HYDROmorphone (PF) 1 MG/ML SYRINGE IVP PRN (14:29)
[2016-03-22] MEDS ORDERED: *HR* OxyCODONE Immed Rel 5 MG TABLET PO PRN (14:30)
[2016-03-22 15:34] VITALS: BP 140/74
--- NOTE | 2016-03-22 15:34 | Discharge Summary ---
<Chau Lee - Last Filed: 03/22/16 15:32> Date of Encounter: 03/22/16 Time of Encounter: 08:45 - Discharge Diagnosis (1) Abdominal pain Priority: Primary Status: Acute Qualifiers: Abdominal location: lower abdomen, unspecified Qualified Code(s): R10.30 - Lower abdominal pain, unspecified (2) Post-op pain Priority: Secondary Status: Acute - Discharge Medications Home Medications: Doxepin [Sinequan] 25 mg PO HS 11/21/15 [History] FLUoxetine HCl [Prozac] 60 mg PO DAILY 11/21/15 [History] Melatonin 5 mg PO HS PRN 01/26/16 [History] Gabapentin [Neurontin] 600 mg PO TID 02/23/16 [History] OxyCODONE/APAP 5/325 [Percocet 5/325 MG] 1 - 2 tab PO Q6HR PRN #40 tablet [Rx] Allergies/Adverse Reactions: Allergies ketorolac [From Toradol] Allergy (Verified 03/16/16 09:25) Rash Date of admission: 03/21/16 19:37 Primary care physician: Ayan Jackson DO Consults: 03/21/16 23:04 Consult to Meat Products Demonstrator [CONS] Routine Reason for SW Consult: Discharge 03/22/16 09:00 Consult to Wound Care [CONS] Routine Reason for Consult: * Abdominal wound infection. Wound VAC in place. Please evaluate and advise. Time Notified: 20:21 Call Completed: No 03/22/16 14:32 Consult to Surgery [CONS] Routine Consulting Provider: [facility] Reason for Consult: Lymphocele Call Completed: Yes Discharging clinician: Chau Lee Anticipated date of discharge: 03/22/16 - Patient Status Disposition: Home Health Service Condition: Fair Functional capacity at discharge: independent ambulation Overall status at discharge: patient is progressing back to baseline - Discharge Instructions Instructions: Cellulitis (DC) Follow Up With: Mayte Acevedo CNP [Advanced Practice Nurse] - 04/04/16 1:00 pm Additional Instructions: Follow up with your PCP in the next 3-5 days Resume wound vac care as scheduled - Diet and Activity Activity: increase activity as tolerated Diet: advance to your usual diet Interval History: abdominal wound vac. Hospital course: Ms. Mosher is a 30 year old female with a abdominal wound vac who was admitted from the emergency department with concerns for fevers and abdominal pain. She was admitted to the general medical floor for evaluation and received a dose of IV Zosyn. During her inpatient stay she did not have a fever, or any other abnormal vitals. Her lab results were without acute findings. She remained stable throughout the day. Her wound vac drained appropriately. There were no signs of abdominal cellulitis. CT of the abdomen did not have any acute changes. General surgery has been consulted and they had seen her just prior to admission and at this time do not feel its appropriate for her to be seen. They also felt that there was no indication to change her wound vac today. She has home health set up to care for her wound vac. On 03/22/2016 She has been seen and evaluated and deemed stable for discharge with her PCP for re-evaluation. - Time Spent with Patient Total time spent providing and/or coordinating discharge services: - Constitutional Vitals: Temp Pulse Resp BP Pulse Ox 98.9 F 71 16 111/64 95 03/22/16 11:05 03/22/16 11:05 03/22/16 11:05 03/22/16 11:05 03/22/16 11:05 General appearance: Present: cooperative, A&O X 3, no acute distress, obese - Head Head exam: Present: atraumatic, normocephalic - Eye Eye exam: Present: PERRL, conjuntiva pink, sclera anicteric Pupils: Present: PERRL - Neck Neck exam general surgery: Present: supple, trachea midline. Absent: lymphadenopathy - Respiratory Respiratory exam: Present: CTAB. Absent: accessory muscle use, rales, rhonchi, wheezes - Cardiovascular Cardiovascular exam: Present: RRR, +S1, +S2. Absent: diastolic murmur, gallop, rubs, systolic murmur - GI/Abdominal Additional comments: Obese abdomen with a wound vac in place in the lower left abdomen. abdomen is soft to palpation with scar tissue felt along previous surgical site. No erythema or edema appreciated on examination. - Extremities Exam Extremities exam: Present: warm, radial pulses palpable and symetrical. Absent : calf tenderness, cyanotic, pedal edema - Neurological Exam Neurological exam: Present: alert, oriented X3, no focal deficits. Absent: pronater drift, facial droop, speech deficit - Psychiatric Psychiatric exam: Present: normal affect, normal mood <You Shirley - Last Filed: 03/22/16 17:07> Date of Encounter: 03/22/16 Date of admission: 03/21/16 19:37 Primary care physician: Ayan Jackson DO Consults: 03/21/16 23:04 Consult to Meat Products Demonstrator [CONS] Routine Reason for SW Consult: Discharge 03/22/16 09:00 Consult to Wound Care [CONS] Routine Reason for Consult: * Abdominal wound infection. Wound VAC in place. Please evaluate and advise. Time Notified: 20:21 Call Completed: No 03/22/16 14:32 Consult to Surgery [CONS] Routine Consulting Provider: [facility] Reason for Consult: Lymphocele Call Completed: Yes Hospital course: Ms. Mosher is a 30 year old female - Time Spent with Patient Total time spent providing and/or coordinating discharge services: - Constitutional Vitals: Temp Pulse Resp BP Pulse Ox 98.7 F 68 17 140/74 96 03/22/16 15:32 03/22/16 15:32 03/22/16 15:32 03/22/16 15:32 03/22/16 15:32 - Attending Attestation I examined this patient and my medical decision-making was reviewed with the LIMOUSINE DRIVER/PA/Advanced Practice Nurse/Resident Physician. I agree with the documented findings, disposition and treatment plan as described except to the extent set forth below. D/W surgical team, do not recommend wound vac care while inpatient. Discharge home with services.
--- NOTE | 2016-03-22 16:26 | Physician Discharge Referral ---
Home Health/Hosp Referral Info Transfer to: Home Health Provider in Charge Post Discharge: PCP - Diagnosis (1) Abdominal pain Priority: Primary Status: Acute (2) Post-op pain Priority: Primary Status: Acute - Respiratory Orders Smoking Cessation: Smoking cessation has been advised. For more information, call the [place] Tobacco Quit Line at 6-898-OXEF-NOW. - Diet/Nutrition Diet/Nutrition Orders: Regular - Activity Activity Orders: Up ad errol - Services Needed Following services are medically necessary services: Nursing, Home Health Aide, Physical Therapy, Occupational Therapy Other Treatments: Wound Vac care - Transfer Medications Home Medications: Doxepin [Sinequan] 25 mg PO HS 11/21/15 [History] FLUoxetine HCl [Prozac] 60 mg PO DAILY 11/21/15 [History] Melatonin 5 mg PO HS PRN 01/26/16 [History] Gabapentin [Neurontin] 600 mg PO TID 02/23/16 [History] OxyCODONE/APAP 5/325 [Percocet 5/325 MG] 1 - 2 tab PO Q6HR PRN #40 tablet [Rx] Allergies/Adverse Reactions: Allergies ketorolac [From Toradol] Allergy (Verified 03/16/16 09:25) Rash Certification: Further, I certify that my clinical findings support that this patient is homebound (i.e. absences from home require considerable and taxing effort and are for medical reasons or taoist services or infrequently or short duration when for other reasons) because: Homebound Reason: Post-surgery restriction and or conditions limit ability to leave home Attestation: My signature below is to certify that this patient is under my care and that I, or nurse practitioner, or a physician's teacher's assistant working with me, has a face-to -face encounter with this patient.
--- NOTE | 2016-03-23 15:27 | Electrocardiograph Report ---
[address] [place], [place] [address] Test Date: 2016-03-21 Pat Name: Shelly Mosher Department: 103 Room: 3A Gender: F Histology Manager: : 1985 Requested By: Alex Lynn Order Number: [id number] Reading MD: Natalee Brunner Measurements Intervals [place] Rate: 81 P: 26 [place]: 136 QRS: -14 QRSD: 91 T: 3 QT: 371 QTc: 408 Interpretive Statements SINUS RHYTHM Electronically Signed On 03-23-2016 15:25:44 EST by Natalee Brunner
== END 2016-03-22 17:44 | disposition home health service (06) ==
LOC: EMEROO 10:37 → 3ANU 10:37
PROVIDERS: ADMIT Internal Medicine; ATTEND Internal Medicine

== ENCOUNTER 2016-04-09 12:23 | Observation (INO) ==
[2016-04-09] MEDS ORDERED: Ondansetron 4 MG/2 ML VIAL IV ONE (12:55)
[2016-04-09] MEDS ORDERED: *HR* Morphine 2 MG/ML SYRINGE IV ONE (12:55)
[2016-04-09] MEDS ORDERED: 0.9 % Sodium Chloride 1,000 ML IV ONE (12:55)
--- NOTE | 2016-04-09 12:57 | Emergency Department Note ---
Disposition Clinical Impression: Abscess, abdomen Disposition: Admitted As Inpatient Condition: Fair General Adult HPI - General Chief complaint: ED Abdominal Pain Stated complaint: sent by Dr. Greenwood, infection in abdomen Time Seen by Provider: 04/09/16 12:41 Source: patient Limitations: no limitations - History of Present Illness Pain Scale: 7 - Related Data Home Medications Medication Instructions Recorded Confirmed Doxepin [Sinequan] 25 mg PO HS 11/21/15 04/08/16 FLUoxetine HCl [Prozac] 60 mg PO DAILY 11/21/15 04/08/16 Melatonin 5 mg PO HS PRN 01/26/16 04/08/16 Gabapentin [Neurontin] 600 mg PO TID 02/23/16 04/08/16 Promethazine [Phenergan] 25 mg PO Q6HR PRN 04/08/16 04/08/16 Allergies Allergy/AdvReac Type Severity Reaction Status Date / Time ketorolac [From Toradol] Allergy Rash Verified 03/16/16 09:25 Past Medical History - Past Medical History Medical history: Reports: hypertension Surgical history: Reports: , herniorrhaphy, other (Recent pedunculectomy) Psychiatric history: Reports: anxiety, bipolar, depression, PTSD, other ANIMAL BREEDER history: Reports: endometriosis - Social History Smoking Status: Current every day smoker Smokeless Tobacco Status: No Alcohol use: Reports: none Drug use: Reports: prescription drug abuse, other Physical Exam - General Limitations: no limitations General appearance: alert, in no apparent distress Course Vital Signs Temperature 98.7 F 04/09/16 12:30 Pulse Rate 88 04/09/16 12:30 Respiratory Rate 18 04/09/16 12:30 Blood Pressure 155/93 04/09/16 12:30 O2 Sat by Pulse Oximetry 95 04/09/16 12:30 Temperature 98.7 F 04/09/16 15:07 Pulse Rate 69 04/09/16 15:07 Respiratory Rate 18 04/09/16 15:07 Blood Pressure 108/70 04/09/16 15:07 O2 Sat by Pulse Oximetry 98 04/09/16 15:07 Oxygen Delivery Oxygen Delivery Room Air Attestation Statement - Attestation Attestation: I examined this patient and my medical decision-making was reviewed with the STAFF DEVELOPMENT MANAGER/PA/Advanced Practice Nurse/Resident Physician. I agree with the documented findings, disposition and treatment plan as described except to the extent set forth below. [id number] time provided Patient presents from the wound care clinic. There was concern for an extension of her wound secondary to a pannectomy. Wound examined by me. We will request admission to the surgical service
--- NOTE | 2016-04-09 13:10 | Emergency Department Note ---
Disposition Clinical Impression: Abscess, abdomen Disposition: Admitted As Inpatient Condition: Fair Referrals: Ayan Jackson DO [Primary Care Provider] - Time of Disposition: 15:19 Wound/Laceration HPI - General Chief Complaint: ED Abdominal Pain Stated Complaint: sent by Dr. Greenwood, infection in abdomen Time Seen by Provider: 04/09/16 12:41 Source: patient Limitations: no limitations Nursing Notes Reviewed: Yes Vital Signs Reviewed: Yes - History of Present Illness HPI Narrative: 30-year-old female with abdominal wall abscess she previously had surgery at [place], this was subsequent infections, multiple revisions surgeries, she then came for a panectomy with Dr. Iyer, he did surgery on her in January 2016, she has had multiple wound care visits for the last month after having SIM tubes removed, today at wound care, she had a deep tracking abscess to the medial abdomen tracking from the left side of her abdomen to the right, he sent her to the ED for admission to the hospital for patient denies recent fever chills, she has had more abdominal pain in the right side recently in the urgent care where she was discharged a few days ago. Onset (ago): week(s) Location: abdomen Place: home Patient Tetanus UTD: Yes Mechanism: other Associated symptoms: Reports: pain Pain Severity: moderate Pain Scale: 4 - Related Data Home Medications Medication Instructions Recorded Confirmed Doxepin [Sinequan] 25 mg PO HS 11/21/15 04/08/16 FLUoxetine HCl [Prozac] 60 mg PO DAILY 11/21/15 04/08/16 Melatonin 5 mg PO HS PRN 01/26/16 04/08/16 Gabapentin [Neurontin] 600 mg PO TID 02/23/16 04/08/16 Promethazine [Phenergan] 25 mg PO Q6HR PRN 04/08/16 04/08/16 Allergies Allergy/AdvReac Type Severity Reaction Status Date / Time ketorolac [From Toradol] Allergy Rash Verified 03/16/16 09:25 Review of Systems: All systems were reviewed with historian and negative except as per below, or as documented in the HPI. Constitutional: Denies: fever, chills, weight changes Eyes: Denies: vision changes, eye pain ENT: Denies: nasal congestion, sore throat CV: Denies: chest pain, palpitations, leg swelling Resp: Denies: cough, dyspnea, wheezes, hemoptysis GI: per HPI abdominal pain abdominal abscess. Denies: dysuria, hematuria MSK: Denies: back pain, neck pain, extremity pain Skin: Denies: new rashes, new lesions Neuro: Denies: LONGO, weakness, sensory changes, gait difficulty Psych: Denies: anxiety, depression All systems ED: reviewed and negative except as stated. Past Medical History - Past Medical History Attestation: Yes The following information was validated with the patient. 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 - Social History Smoking Status: Current every day smoker Smokeless Tobacco Status: No Alcohol use: Reports: none Drug use: Reports: prescription drug abuse, other Physical Exam Constitutional: alert and oriented, in NAD, vital signs reviewed and were normal limits Resp: normal chest inspection, CTA bilaterally, no resp distress, symmetric chest rise CV: RRR, no m/g/r, Pulses +2 Rad, +2 DP/PT bilaterally, no pedal edema GI: Abdomen with large wound to left aspects part approximately 4-5 cm below the umbilicus, there is tenderness tracking to the right medial abdomen wound is packed no drainage. Back: normal inspection, no tenderness to palpation Neuro: A&O3, CN II-XII grossly intact bilaterally, no gross motor or sensory deficits bilaterally MSK: normal inspection, bilateral UE and LE with normal ROM and no deformities Psych: normal mood, normal affect Skin: No rashes, skin warm, dry, intact - General Limitations: no limitations General appearance: alert, in no apparent distress Course Course Narrative: Dr. Greenwood is at bedside, he states no ED workup, we will add an IV and basic fluids for the patient, Dr. Will to do further admission and orders Vital Signs Temperature 98.7 F 04/09/16 12:30 Pulse Rate 88 04/09/16 12:30 Respiratory Rate 18 04/09/16 12:30 Blood Pressure 155/93 04/09/16 12:30 O2 Sat by Pulse Oximetry 95 04/09/16 12:30 Temperature 98.7 F 04/09/16 12:30 Pulse Rate 88 04/09/16 12:30 Respiratory Rate 18 04/09/16 14:30 Blood Pressure 124/76 04/09/16 14:30 O2 Sat by Pulse Oximetry 95 04/09/16 12:30 Oxygen Delivery Oxygen Delivery Room Air
[2016-04-09] MEDS: 0.9 % Sodium Chloride 1,000 ML IV ONE ×2 (13:20→18:46)
--- NOTE | 2016-04-09 14:23 | General Surg History&Physical ---
<Vik Torres - Last Filed: 04/10/16 08:09> Date of Encounter: 04/10/16 Time of Encounter: 13:45 Assessment and Plan (1) Nonhealing surgical wound Current Visit: Yes Status: Acute The assessment and plan as outlined above was discussed with the patient and/or family members who expressed understanding and agreement. All questions were answered. 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 Patient is noncompliant with followup appointments for wound care after previous discharge. NPO at midnight. Zosyn and Vancomycin started. Protonix for GI prophylaxis. Surgical wound debridement tomorrow. Continue IV fluids. Continue pain and nausea control. Qualifiers: Encounter type: subsequent encounter Qualified Code(s): T81.89XD - Other complications of procedures, not elsewhere classified, subsequent encounter (2) Depression Current Visit: Yes Status: Chronic The assessment and plan as outlined above was discussed with the patient and/or family members who expressed understanding and agreement. All questions were answered. Continue home medication of Prozac. Qualifiers: Depression Type: major depressive disorder Major depression recurrence: recurrent Active/Remission status: remission status unspecified Qualified Code(s): F33.9 - Major depressive disorder, recurrent, unspecified History of Present Illness Chief complaint: Abdominal wall pain, wound check HPI: Ms. Mosher is a 30 year old female with PMH significant for hypertension, depression, and PTSD who presented to the ED per Dr. Greenwood from wound clinic. The patient has an extensive history of difficulty with an abdominal wound with complications starting after previous 4 years ago that was complicated by an umbilical hernia. The hernia was then repaired with mesh, which became infected and needed multiple followup surgeries. Recently she had a panniculectomy 01/26/[address] Greenwood with wound vac placement following surgery. The patient was discharge and failed to followup up appropriately to the wound clinic for changing her wound vac. She now presented once again to the wound clinic due to increasing pain of her surgical wound following her panniculectomy. She was found to have an abdominal wall abscess that needs inpatient care with further surgical debridement. Past Med Surg Social Fam HX - Past Medical History Medical history: hypertension Psychiatric history: anxiety, bipolar, depression, PTSD, other - Past Surgical History Surgical History: , cholecystectomy, herniorrhaphy, other (Recent panniculectomy 01/26/2016, vo button extraction) - Social History Smoking Status: Current every day smoker Smokeless Tobacco Status: No Alcohol use: none Drug use: prescription drug abuse, other - Family History Mother Hx Family Endocrine Disorder: Yes (Graves Disease) Father Adopted: No Family Member Ethnicity: Non- Living Status: Still Living Hx Family Cardiac Disorders: Yes (open heart surgery) Hx Family Respiratory Disorders: No Hx Family Cancer: No Hx Family GI Disorders: No Hx Family Endocrine Disorder: Yes Hx Family Neuromuscular Disorders: No Hx Family Neurologic Disorders: No Hx Family HEENT Disorders: No Hx Family Autoimmune Disorders: No Medications and Allergies FLUoxetine HCl [Prozac] 60 mg PO DAILY 11/21/15 [History] Gabapentin [Neurontin] 600 mg PO TID 02/23/16 [History] Allergies ketorolac [From Toradol] Allergy (Verified 03/16/16 09:25) Rash Review of Systems All systems PM: A 10-system review of systems was performed and is negative for pertinent findings except as documented above in the HPI. - Constitutional chills, no fever(s), no lethargy, no weakness - Cardiovascular no chest pain, no dyspnea, no edema, no lightheadedness, no palpitations - Respiratory no cough, no dyspnea - Gastrointestinal abdominal pain, nausea, no constipation, no diarrhea, no hematochezia, no melena , no vomiting - Genitourinary Genitourinary: no dysuria, no urinary frequency - Musculoskeletal no arthralgias, no myalgias - Integumentary wounds (surgical wound from panniculectomy, non-healing) - Neurological no confusion, no dizziness, no loss of vision General Surgery Exam Initial Vital Signs Temp Pulse Resp BP Pulse Ox 98.7 F 88 18 155/93 95 04/09/16 12:30 04/09/16 12:30 04/09/16 12:30 04/09/16 12:30 04/09/16 12:30 - General physical appearance well developed, well nourished, no distress - Eyes normal ocular movement - ENT normal nares, normal mucosa - Neck trachea midline - Respiratory normal respiratory effort, clear to auscultation - Cardiovascular Cardiovascular exam: Present: RRR - Abdomen Abdomen general surgery: Present: bowel sounds present, soft Abdominal Tenderness: Present: RLQ (with area of induration on the right side) - Integumentary Integumentary general surgery: Present: other (Large wound to left aspect of the lower abdomen approximately 4-5 cm below the umbilicus, there is tenderness tracking to the right medial abdomen wound is packed no drainage.) - Neurologic Present: CN 2-12 grossly intact - Musculoskeletal Present: normal posture - Psychiatric Psychiatric general surgery: Present: appropriate, oriented to person, oriented to place, oriented to time, speech is normal, memory intact Results - Labs All other labs normal. - Attending Attestation I examined this patient and my medical decision-making was reviewed with the CANS VACUUM TESTER/PA/Advanced Practice Nurse/Resident Physician. I agree with the documented findings, disposition and treatment plan as described except to the extent set forth below. <Alexys Greenwood - Last Filed: 04/10/16 15:45> Date of Encounter: 04/10/16 History of Present Illness HPI: Ms. Mosher is a 30 year old female Review of Systems All systems PM: A 10-system review of systems was performed and is negative for pertinent findings except as documented above in the HPI. General Surgery Exam Initial Vital Signs Temp Pulse Resp BP Pulse Ox 98.7 F 88 18 155/93 95 04/09/16 12:30 04/09/16 12:30 04/09/16 12:30 04/09/16 12:30 04/09/16 12:30 Results - Labs All other labs normal. - Attending Attestation The patient is seen and evaluated with the resident on rounds. The patient is scheduled for surgery later today for debridement of the wound and drainage of the recurrent abscess on the right side of the abdominal wall. I discussed the surgery again with her she understands proceed later today. Alexys Greenwood MD FACS
[2016-04-09] MEDS ORDERED: Vancomycin 2,000 MG in D5% in Water 250 ML IVPB SCH (16:00)
[2016-04-09] MEDS: Ondansetron 4 MG/2 ML VIAL IVP PRN (16:27)
[2016-04-09] MEDS: *HR* Morphine 2 MG/ML SYRINGE IVP PRN ×2 (16:27→20:36)
[2016-04-09] MEDS: Gabapentin 400 MG CAPSULE PO SCH ×2 (16:32→20:39)
[2016-04-09] MEDS: Piperacillin/Tazobactam 3.375 GM in D5% in Water (Mini-Bag+) 100 ML IVPB SCH (16:43)
[2016-04-09] MEDS: Vancomycin 2,000 MG in D5% in Water 500 ML IVPB SCH (16:43)
[2016-04-09] MEDS: Famotidine 20 MG/2 ML VIAL IVP SCH (19:17)
[2016-04-09] MEDS ORDERED: Melatonin 3 MG TABLET PO PRN (21:00)
[2016-04-10] MEDS: Piperacillin/Tazobactam 3.375 GM in D5% in Water (Mini-Bag+) 100 ML IVPB SCH ×4 (00:33→23:11)
[2016-04-10] MEDS: *HR* Morphine 2 MG/ML SYRINGE IVP PRN ×4 (00:35→15:55)
[2016-04-10] MEDS: Vancomycin 2,000 MG in D5% in Water 500 ML IVPB SCH (04:32)
[2016-04-10] MEDS: Famotidine 20 MG/2 ML VIAL IVP SCH (06:19)
--- NOTE | 2016-04-10 07:36 | General Surgery Progress Note ---
<Vik Torres - Last Filed: 04/10/16 08:10> Date of Encounter: 04/10/16 Time of Encounter: 07:10 - Assessment and Plan (1) Nonhealing surgical wound Current Visit: Yes Status: Acute Lymphocele after surgical panniculectomy 01/26/16. Patient is noncompliant with followup appointments for wound care after previous discharge. Patient remains NPO for surgical wound debridement later this afternoon. Consent was obtained and risks and benefits of the procedure were discussed with the patient. Continue Zosyn and Vancomycin (day #2) Continue Protonix for GI PPx. On IV fluids. Continue with pain and nausea control. Qualifiers: Encounter type: subsequent encounter Qualified Code(s): T81.89XD - Other complications of procedures, not elsewhere classified, subsequent encounter (2) Depression Current Visit: Yes Status: Chronic Continue with Prozac at home dosage. Qualifiers: Depression Type: major depressive disorder Major depression recurrence: recurrent Active/Remission status: remission status unspecified Qualified Code(s): F33.9 - Major depressive disorder, recurrent, unspecified Subjective Narrative: The patient slept well overnight. Her lower abdominal pain is well controlled on morphine. She denies nausea, vomiting, diarrhea. Objective Vital Signs - Last 8 Hours Temp Pulse Resp BP Pulse Ox 04/10/16 03:56 99.8 F H 67 16 90 L 04/10/16 00:22 98.4 F 67 14 124/75 95 Intake and Output 04/09/16 04/09/16 04/10/16 15:59 23:59 07:59 Intake Total 1840 / 1840 600 / 600 Output Total 0 / 0 0 / 0 150 / 150 Balance 0 / 0 1840 / 1840 450 / 450 Intake: IV Fluids 1600 / 1600 600 / 600 0.9 % Sodium Chloride 1, 1000 / 1000 000 ML @ 3750 mls/hr IV BOLUS ONE Rx#:[id number] Zosyn 3.375 GM In 100 / 100 100 / 100 Dextrose 5% (Minibag+) 100 ML 100 ML @ 25 mls/hr IVPB Q8HR MATI Rx#: [id number] Vancocin 2,000 MG In 500 / 500 500 / 500 Dextrose 5% 500 ML @ 250 mls/hr IVPB Q12H MATI Rx#: [id number] Oral 240 / 240 0 / 0 Output: Urine 0 / 0 0 / 0 150 / 150 Other: Meal Dinner Percent of Meal Consumed 100% - General physical appearance well developed, well nourished, no distress - Eyes normal ocular movement - ENT normal mucosa - Neck Neck exam: trachea midline - Respiratory normal respiratory effort, clear to auscultation - Cardiovascular Cardiovascular exam: Present: RRR - Abdomen Abdomen: Present: bowel sounds present, tender (RLQ with small area of induration), wound (lower abdomen (no drainage)) - Integumentary no rash - Neurologic CN 2-12 grossly intact - Psychiatric oriented to time, oriented to person, oriented to place Consult Discharge Plan - Plan Referrals: Ayan Jackson, [Primary Care Provider] - - Attending Attestation I examined this patient and my medical decision-making was reviewed with the CONVERTIBLE POWER SHOVEL OPERATOR/PA/Advanced Practice Nurse/Resident Physician. I agree with the documented findings, disposition and treatment plan as described except to the extent set forth below. <Alexys Greenwood - Last Filed: 04/10/16 15:50> Date of Encounter: 04/10/16 Objective Vital Signs - Last 8 Hours Temp Pulse Resp BP Pulse Ox 04/10/16 11:43 99 F 80 15 122/80 95 Intake and Output 04/09/16 04/10/16 04/10/16 23:59 07:59 15:59 Intake Total 1840 / 1840 600 / 600 Output Total 0 / 0 150 / 150 150 / 150 Balance 1840 / 1840 450 / 450 -150 / -150 Intake: IV Fluids 1600 / 1600 600 / 600 0.9 % Sodium Chloride 1, 1000 / 1000 000 ML @ 3750 mls/hr IV BOLUS ONE Rx#:[id number] Zosyn 3.375 GM In 100 / 100 100 / 100 Dextrose 5% (Minibag+) 100 ML 100 ML @ 25 mls/hr IVPB Q8HR MATI Rx#: [id number] Vancocin 2,000 MG In 500 / 500 500 / 500 Dextrose 5% 500 ML @ 250 mls/hr IVPB Q12H MATI Rx#: [id number] Oral 240 / 240 0 / 0 Output: Urine 0 / 0 150 / 150 150 / 150 Other: Meal Dinner NPO Percent of Meal Consumed 100% - Attending Attestation The patient was seen and evaluated with resident on rounds. She will require antibiotic therapy as well as surgical debridement and lysis of new negative pressure wound therapy system in order to control the recurrent abscess fluid collection in the right side of the abdominal wall. Alexys Greenwood MD FACS
[2016-04-10] MEDS: Gabapentin 400 MG CAPSULE PO SCH ×3 (08:03→21:04)
[2016-04-10] MEDS: Ondansetron 4 MG/2 ML VIAL IVP PRN (11:06)
[2016-04-10] MEDS ORDERED: Vancomycin 1,500 MG in D5% in Water 250 ML IVPB SCH (16:00)
--- NOTE | 2016-04-10 17:25 | Anesthesia Evaluation PreOp ---
Date of Encounter: 04/10/16 Time of Encounter: 17:45 - Past History Planned Operation: Wound debridement, wound vac placement Cardiac History: HTN Pulmonary History: Smoker SENIOR SCRUM MASTER History: Other (PTSD, bipolar disorder) Other Medical History: Other (BMI 45) Anesthesia History: No Prior Anesthetic Complications Alcohol Use: none Drug use: prescription drug abuse, other Medications and Allergies FLUoxetine HCl [Prozac] 60 mg PO DAILY 11/21/15 [History] Gabapentin [Neurontin] 600 mg PO TID 02/23/16 [History] Allergies ketorolac [From Toradol] Allergy (Verified 03/16/16 09:25) Rash - Meds/Allergy Pre-op Review Medications Reviewed: Yes Allergies Reviewed: Yes Beta Blockers on Current Med List: No Anesthesia Results - Labs Laboratory Tests 04/08/16 04/08/16 04/10/16 15:35 15:35 11:40 WBC 7.5 Hgb 12.8 Hct 39.6 Plt Count 326 Sodium 141 Potassium 3.4 L Chloride 109 Carbon Dioxide 22 BUN 7 Creatinine 0.71 Est GFR ( Amer) > 60 Est GFR (Non-Af Amer) > 60 BUN/Creatinine Ratio 10 Glucose 94 POC Glucose 83 Anesthesia Exam Last Vital Signs Temp 99.6 F 04/10/16 16:35 Pulse 76 04/10/16 16:35 Resp 16 04/10/16 16:35 BP 107/69 04/10/16 16:35 Pulse Ox 95 04/10/16 16:35 Weight: 129 kg - HEENT Pupil (Motor): Pupils equal, EOMI Mallampati: II Teeth: Poor dentition Oral Opening: Greater than 3 - SENIOR SCRUM MASTER LOC: Oriented - Cardiac Rhythm: Regular Murmur: None - Pulmonary Breath Sounds: bilateral Clear Respiratory Effort: Symmetrical Anesthesia Assess/Plan ASA Score: 3 Modified Sal[place] Scale for Level of Consciousness: Cooperative, oriented, and tranquil Anesthetic Plan: General Monitoring Plan: Standard Monitors Recovery Plan: PACU
[2016-04-10] MEDS ORDERED: Dexamethasone 4 MG/ML VIAL ONE (18:20)
[2016-04-10] MEDS ORDERED: *HR* Midazolam HCl 2 MG/2 ML VIAL ONE (18:20)
[2016-04-10] MEDS ORDERED: *HR* FentaNYL (PF) 100 MCG/2 ML VIAL ONE (18:20)
[2016-04-10] MEDS ORDERED: Ondansetron 4 MG/2 ML VIAL ONE (18:20)
[2016-04-10] MEDS ORDERED: Lidocaine -MPF 2% 2 ML VIAL ONE (18:20)
[2016-04-10] MEDS ORDERED: *HR* Propofol 200 MG/20 ML VIAL IVP ONE (18:20)
--- NOTE | 2016-04-10 19:01 | Operative Note ---
Date of procedure: 04/10/16 Pre-op diagnosis: Abscess right lower abdominal wall Post-op diagnosis: same Procedure: Incision and drainage abscess right lower abdominal wall. Placement of wound VAC Anesthesia: TRAMAINE Surgeon: Alexys Greenwood Estimated blood loss (cc): 10 Specimen: None Condition: stable Disposition: PACU Procedure in Detail: After informed consent the patient was taken major operating suite and placed in supine position given a general anesthetic. The abdomen was prepped and draped in sterile fashion Betadine scrub solution with no alcohol secondary to open wound. Timeout was taken and patient was identified. I made a incision overlying the abscess in the previous well-healed right lower abdominal incision. I dissected down the level. I opened the abscess draining the pus. All the tissue actually looked quite good and I did not feel that a further debridement was necessary. The abscess actually connected to the open wound on the left lower abdomen. The skin was then prepared with Skin-Prep and black foam was used to fill both openings. A bridge was also used. The negative pressure wound system was applied and was started on -125 mmHg of pressure. She tolerated the procedure well.
[2016-04-10] MEDS: *HR* HYDROmorphone (PF) 1 MG/ML SYRINGE IVP PRN ×2 (19:22→19:28)
[2016-04-10] MEDS ORDERED: Ringers Solution, Lactated 1,000 ML ONE (19:26)
[2016-04-10] MEDS ORDERED: *HR* Promethazine 25 MG/ML VIAL IVP PRN (19:35)
[2016-04-10] MEDS ORDERED: *HR* Promethazine 25 MG/ML VIAL ONE (19:38)
--- NOTE | 2016-04-10 20:00 | Anesthesia Evaluation Post Op ---
Date of Encounter: 04/10/16 Time of Encounter: 19:59 - Vital Signs Vital Signs: Vital Signs/O2 Sat, Most Current Temp Pulse Resp BP Pulse Ox 98.4 F 72 16 115/59 94 L 04/10/16 19:41 04/10/16 19:51 04/10/16 19:51 04/10/16 19:51 04/10/16 19:51 - Lungs Lungs: Clear Ascult./Percussion - Airway Airway: Non-obstructed - Cardiovascular Regular Rate - Mental Status Mental Status: Alert & Oriented, Answers Appropriately - Pain Pain Scale: 7 (pt does not appear to be in any acute distress based on body language) Pain Scale used: Numeric (1 - 10) - Nausea Vomiting Nausea Vomiting: Not Present - Hydration Hydration: Ice chips, Has not voided - Discharge PostOp Status: Transfer Patient to floor
[2016-04-10] MEDS ORDERED: Melatonin 3 MG TABLET PO PRN (20:23)
[2016-04-10] MEDS ORDERED: Ondansetron 4 MG/2 ML VIAL IVP PRN (20:23)
[2016-04-10] MEDS ORDERED: *HR* Morphine 2 MG/ML SYRINGE IVP PRN (20:23)
[2016-04-10] MEDS: *HR* OxyCODONE/APAP 10/325 TABLET PO PRN (21:04)
[2016-04-11] MEDS ORDERED: Vancomycin 1,500 MG in D5% in Water 250 ML IVPB SCH (04:00)
[2016-04-11] MEDS: *HR* OxyCODONE/APAP 10/325 TABLET PO PRN (05:02)
[2016-04-11] MEDS ORDERED: Famotidine 20 MG/2 ML VIAL IVP SCH (06:00)
--- NOTE | 2016-04-11 07:23 | Discharge Summary ---
<Vik Torres - Last Filed: 04/11/16 11:15> Date of Encounter: 04/11/16 Time of Encounter: 06:45 - Discharge Diagnosis (1) Nonhealing surgical wound Priority: Primary Status: Chronic Qualifiers: Encounter type: subsequent encounter Qualified Code(s): T81.89XD - Other complications of procedures, not elsewhere classified, subsequent encounter (2) Depression Priority: Secondary Status: Chronic Qualifiers: Depression Type: major depressive disorder Major depression recurrence: recurrent Active/Remission status: remission status unspecified Qualified Code(s): F33.9 - Major depressive disorder, recurrent, unspecified - Discharge Medications Prescriptions: OxyCODONE/APAP 10/325 [Percocet 10/325 MG] 1 each PO Q6HR PRN #24 tablet PRN Reason: Pain Ciprofloxacin [Cipro] 500 mg PO BID 7 Days Docusate [Colace] 100 mg PO DAILY #7 capsule Home Medications: FLUoxetine HCl [Prozac] 60 mg PO DAILY 11/21/15 [History] Gabapentin [Neurontin] 600 mg PO TID 02/23/16 [History] Ciprofloxacin [Cipro] 500 mg PO BID 7 Days 04/11/16 [Rx] Docusate [Colace] 100 mg PO DAILY #7 capsule 04/11/16 [Rx] OxyCODONE/APAP 10/325 [Percocet 10/325 MG] 1 each PO Q6HR PRN #24 tablet [Rx] Allergies/Adverse Reactions: Allergies ketorolac [From Toradol] Allergy (Verified 03/16/16 09:25) Rash General Surgery Exam Initial Vital Signs Temp Pulse Resp BP Pulse Ox 98.7 F 88 18 155/93 95 04/09/16 12:30 04/09/16 12:30 04/09/16 12:30 04/09/16 12:30 04/09/16 12:30 - General physical appearance well developed, well nourished, no distress - Eyes normal ocular movement - ENT normal mucosa - Neck trachea midline - Respiratory normal respiratory effort, clear to auscultation - Cardiovascular Cardiovascular exam: Present: RRR - Abdomen Abdomen general surgery: Present: bowel sounds present, soft, non tender, wound (wound vac in place draining serosanguinous fluid) - Integumentary Integumentary general surgery: Present: warm and dry - Neurologic Present: CN 2-12 grossly intact - Musculoskeletal Present: normal posture - Psychiatric Psychiatric general surgery: Present: appropriate, oriented to person, oriented to place, oriented to time, speech is normal, memory intact Date of admission: 04/09/16 13:28 Primary care physician: Ayan Jackson DO Consults: 04/09/16 14:54 Consult to Hospital Pharmacy Technician [CONS] Routine Reason for SW Consult: Wound vac, Had home health prior to admission for wound vac with [facility] Discharging clinician: Alexys Greenwood Anticipated date of discharge: 04/11/16 - Patient Status Disposition: Home Health Service Condition: Good Functional capacity at discharge: independent ambulation Overall status at discharge: patient is back to baseline - Discharge Instructions Instructions: Surgical Site Infections, Delivery Engineer (GEN) Follow Up With: Kristine Rush MD [Partnered Physician] - Ayan Jackson DO [Primary Care Provider] - Alexys Greenwood MD [Partnered Physician] - 04/23/16 3:00 am (wound care center) Additional Instructions: Complete your course of oral antibiotics and followup with your scheduled appointments in wound clinic. - Diet and Activity Activity: increase activity as tolerated Diet: advance to your usual diet - Hospital Course Hospital course: Ms. Mosher is a 30 year old female who underwent panniculectomy on 01/26/16 and was noncompliant with her followup appointments thereafter. She was seen on 04/09/15 in the wound clinic and was admitted for an abdominal wall abscess that was in need of inpatient treatment. The patient was started on vancomycin and zosyn for antibiotic coverage and underwent incision and drainage of her abscess in the right lower abdominal wall with subsequent wound VAC placement. She tolerated the procedure well and will be discharged today with followup appointments for her primary care physician and with wound clinic. She will be discharge on ciprofloxacin with one week of oral pain medication. - Time Spent with Patient Total time spent providing and/or coordinating discharge services: Less than 30 minutes Labs on day of discharge: Labs from last 24 hours 04/10/16 11:40 POC Glucose 83 - Attending Attestation I examined this patient and my medical decision-making was reviewed with the PHOTOGRAPHER/PA/Advanced Practice Nurse/Resident Physician. I agree with the documented findings, disposition and treatment plan as described except to the extent set forth below. <Alexys Greenwood - Last Filed: 04/13/16 08:28> General Surgery Exam Initial Vital Signs Temp Pulse Resp BP Pulse Ox 98.7 F 88 18 155/93 95 04/09/16 12:30 04/09/16 12:30 04/09/16 12:30 04/09/16 12:30 04/09/16 12:30 Date of admission: 04/09/16 13:28 Primary care physician: Ayan Jackson DO Consults: 04/09/16 14:54 Consult to Hospital Pharmacy Technician [CONS] Routine Reason for SW Consult: Wound vac, Had home health prior to admission for wound vac with [facility] - Hospital Course Hospital course: Ms. Mosher is a 30 year old female - Time Spent with Patient Total time spent providing and/or coordinating discharge services: - Attending Attestation The patient was seen and evaluated on morning rounds with the resident. Her pain is under reasonable control. Even though she has had a past problem with narcotics is appropriate to treat her with a single prescription for Percocet for her acute surgical pain. She will be seen in follow-up in wound clinic. She will also receive home health for her wound VAC therapy. Condition on discharge much improved. Alexys Greenwood MD FACS
[2016-04-11 07:44] VITALS: BP 152/84
[2016-04-11] MEDS ORDERED: FLUoxetine 20 MG CAPSULE PO SCH ×2 (09:00)
[2016-04-11] MEDS: Piperacillin/Tazobactam 3.375 GM in D5% in Water (Mini-Bag+) 100 ML IVPB SCH (09:30)
[2016-04-11] MEDS: Gabapentin 400 MG CAPSULE PO SCH (09:31)
--- NOTE | 2016-04-11 11:29 | Physician Discharge Referral ---
<BrianVik Juan Jose - Last Filed: 04/11/16 11:27> Home Health/Hosp Referral Info Transfer to: Home Health - Diagnosis (1) Nonhealing surgical wound Priority: Primary Status: Chronic (2) Depression Priority: Secondary Status: Chronic - Respiratory Orders Smoking Cessation: Smoking cessation has been advised. For more information, call the [employer] Quit Line at 6-044-JZDQ-NOW. - Dressing/Wound Care Site: Wound VAC changes every Saturday, Saturday, Saturday. - Diet/Nutrition Diet/Nutrition Orders: Regular - Transfer Medications Prescriptions: OxyCODONE/APAP 10/325 [Percocet 10/325 MG] 1 each PO Q6HR PRN #24 tablet PRN Reason: Pain Ciprofloxacin [Cipro] 500 mg PO BID 7 Days Docusate [Colace] 100 mg PO DAILY #7 capsule Home Medications: FLUoxetine HCl [Prozac] 60 mg PO DAILY 11/21/15 [History] Gabapentin [Neurontin] 600 mg PO TID 02/23/16 [History] Ciprofloxacin [Cipro] 500 mg PO BID 7 Days 04/11/16 [Rx] Docusate [Colace] 100 mg PO DAILY #7 capsule 04/11/16 [Rx] OxyCODONE/APAP 10/325 [Percocet 10/325 MG] 1 each PO Q6HR PRN #24 tablet [Rx] Allergies/Adverse Reactions: Allergies ketorolac [From Toradol] Allergy (Verified 03/16/16 09:25) Rash Certification: Further, I certify that my clinical findings support that this patient is homebound (i.e. absences from home require considerable and taxing effort and are for medical reasons or taoism services or infrequently or short duration when for other reasons) because: Homebound Reason: Post-surgery restriction and or conditions limit ability to leave home Attestation: My signature below is to certify that this patient is under my care and that I, or nurse practitioner, or a physician's preschool assistant teacher working with me, has a face-to -face encounter with this patient. <Alexys Greenwood - Last Filed: 04/13/16 08:21> - Respiratory Orders Smoking Cessation: Smoking cessation has been advised. For more information, call the [employer] Quit Line at 0-789-ZFNG-NOW. Certification: Further, I certify that my clinical findings support that this patient is homebound (i.e. absences from home require considerable and taxing effort and are for medical reasons or taoism services or infrequently or short duration when for other reasons) because: Attestation: My signature below is to certify that this patient is under my care and that I, or nurse practitioner, or a physician's preschool assistant teacher working with me, has a face-to -face encounter with this patient. The patient was seen and evaluated and is appropriate for home health care. Alexys Greenwood MD FACS
[2016-04-11] MEDS ORDERED: Aminoglycoside Consult 1 EACH MC ONE (15:51)
== END 2016-04-11 15:52 | disposition home health service (06) ==
LOC: 3ANU 12:23 → EMEROO 12:23 → 3ANU 14:31
PROVIDERS: ADMIT Surgery; ATTEND Surgery